=== PATIENT | female | born 1960 | race Caucasian/White ===

== ENCOUNTER 2020-05-30 14:43 | Outpatient (REF) | payer MEDICAID, SELFPAY ==
--- NOTE | 2020-05-30 | XR_ITS ---
EXAMINATION: XR KNEE, RIGHT CLINICAL INFORMATION: Pain and swelling COMPARISON: None TECHNIQUE: Four views of the right knee. FINDINGS: Bone alignment is normal. No fracture or dislocation is seen. The joint spaces are normal appearing. There is a small soft tissue calcification or ossification adjacent to the superior medial patella seen on 3 of 4 views. This may be related to old trauma. Soft tissues are otherwise unremarkable. There is no joint effusion. XR/XR knee RT 4V IMPRESSION: Question soft tissue calcification adjacent to the superior medial patella probably related to old trauma. Otherwise unremarkable exam.
--- NOTE | 2020-05-30 | US_ITS ---
EXAMINATION: US EXTREMITY NONVASCULAR, RIGHT CLINICAL INFORMATION: Right knee pain and effusion. COMPARISON: None TECHNIQUE: Limited imaging through the right knee popliteal fossa was performed. FINDINGS: Limited imaging through the right knee popliteal fossa reveals no evidence of Mckay's cyst or joint effusion. No soft tissue mass or aneurysm. US/US extremity nonvascular IMPRESSION: Normal limited ultrasound evaluation of right popliteal fossa with no visualization of mass, cyst or joint effusion. No evidence of aneurysm either.
== END 2020-05-30 14:44 | disposition home or self-care (01) ==
LOC: HO.US 14:43
PROVIDERS: PCP Internal Medicine Geriatric Medicine; Visit Provider Nurse Practitioner Family
DX: M25.561 Pain in right knee (principal); M25.461 Effusion, right knee
CPT/HCPCS: 73564; 76882

== ENCOUNTER 2020-06-20 15:56 | Outpatient (REF) | payer MEDICAID, SELFPAY ==
--- NOTE | ~2020-06-20 | US_ITS ---
EXAMINATION: US VENOUS ULTRASOUND WITH DOPPLER LOWER EXTREMITY, RIGHT CLINICAL INFORMATION: Right knee pain COMPARISON: None TECHNIQUE: Ultrasound of the deep veins is performed from the hip to the calf with compression sonography and color and pulse Doppler assessment. Spectral analysis with color-flow imaging is performed. FINDINGS: There is normal venous compression and respiratory variation and augmented flow. The visualized common femoral vein, superficial femoral vein, profunda femoral vein, popliteal vein, and the trifurcation region shows no evidence of deep venous thrombosis. There is no significant popliteal fossa cyst. If the patient's symptoms persist, followup ultrasound in 5 days 7 days might be of value to exclude proximal propagation from a non-visualized calf vein. US/US venous duplex LE RT IMPRESSION: No DVT demonstrated in the right lower extremity.
== END 2020-06-20 15:57 | disposition home or self-care (01) ==
LOC: HO.US 15:56
PROVIDERS: PCP Internal Medicine Geriatric Medicine; Visit Provider Nurse Practitioner Family
DX: M25.461 Effusion, right knee (principal); M25.561 Pain in right knee
CPT/HCPCS: 93971

== ENCOUNTER 2020-07-25 18:38 | Outpatient (REF) | payer MEDICAID, SELFPAY ==
--- NOTE | ~2020-07-25 | MR_ITS ---
EXAMINATION: MR KNEE WITHOUT CONTRAST, RIGHT CLINICAL INFORMATION: Right knee pain COMPARISON: Radiograph dated 05/30/2020 TECHNIQUE: MRI of the knee without contrast was performed using routine sequences on a high-field scanner. FINDINGS: MENISCI: Medial Meniscus: There is mild fraying of the free edge of the posterior horn. Medial meniscus otherwise intact. Lateral Meniscus: There is mild fraying/small radial tear of the free edge of the body. LIGAMENTS: Cruciate: Intact Collateral: Intact EXTENSOR MECHANISM: Intact ARTICULAR CARTILAGE/BONE: Patellofemoral Compartment: There is susceptibility artifact obscuring the medial patella. No macroscopic cartilage defect. Medial Compartment: No macroscopic cartilage defect. Lateral Compartment: No macroscopic cartilage defect. JOINT FLUID AND BURSAE: Trace joint effusion. MR/MR knee RT wo con IMPRESSION: Mild fraying of the free end to the posterior horn of the MEDIAL meniscus. Small radial tear of the body of the LATERAL meniscus.
== END 2020-07-25 18:39 | disposition home or self-care (01) ==
LOC: HO.MRI 18:38
PROVIDERS: Visit Provider Internal Medicine Geriatric Medicine
DX: M25.561 Pain in right knee (principal)
CPT/HCPCS: 73721

== ENCOUNTER → 2020-08-21 11:10 | Outpatient (BNVA) | payer MEDICAID, SELFPAY | PROVIDERS: PCP Internal Medicine Geriatric Medicine; Visit Provider Physician Assistant | DX: M17.11 Unilateral primary osteoarthritis, right knee (principal); S83.289A Other tear of lateral meniscus, current injury, unspecified knee, initial encounter | CPT/HCPCS: 20610; 99202; J1040 ==

== ENCOUNTER 2020-09-09 14:29 | Outpatient (RCR) | payer MEDICAID, SELFPAY ==
--- NOTE | 2020-09-09 16:17 | MHC.PT.EP ---
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 TODAY SHE PRESENTS WITH POSTERIOR KNEE PAIN AND SWELLING. UPON EXAM, IMPAIRMENTS INCLUDE DECREASED HIP AND KNEE ROM, DECREASED STRENGTH OF HIP AND KNEE MUSCULATURE, ALTERED GAIT PATTERN, IMPAIRED BALANCE, INCREASED PAIN. FUNCTIONAL LIMITATIONS INCLUDE DECREASED TOLERANCE TO WALKING, STAIR MANAGEMENT, SIT TO STAND XFERS. SHE REPORTS DIFFICULTY WITH HOMEMAKING AND WORK TASKS, DECREASED ABILITY TO PERFORM COMMUNITY AND RECREATIONAL ACTIVITIES, DISRUPTED SLEEP. Frequency and Duration: The patient will be seen 2 X WEEK FOR 5 WEEKS Short Term Goals: INITIATE HAMSTRING AND CALF STRETCHING AND Pt TO DEMONSTRATE INDEPENDENCE WITH INITIAL HEP IN 3 VISITS. Milk Receiver Goals: IN 5 WEEKS TO PERFORM STAIR MANAGEMENT, 2 FLIGHT MINIMUM WITH PAIN NO GREATER THAN 2/10 TO PERFORM ALL WORK TASKS WITHOUT RESTRICTION AND PAIN NO GREATER THAN 2/10 TO DEMONSTRATE INDEPENDENCE WITH HEP TO AMBULATE AD SOHAIL ON EVEN AND UNEVEN SURFACES WITHOUT RESTRICTION FULL AND EQUAL LE STRENGTH TAVO FULL AND EQUAL ROM TAVO Treatment Plan: Modalities to reduce pain, spasms and effusion. Manual therapy to restore motion and function. Therapeutic exercise to improve strength and flexibility. Neuromuscular re-education for posture and balance. Therapeutic activities to return to functional activities of daily living. Electronically signed by: ALPA GALAVIZ PT, DPT Please sign and return to therapist. Thank you for your referral.
== END 2020-10-04 15:30 | disposition other institution (70) ==
LOC: HO.PT 14:29
PROVIDERS: PCP Internal Medicine Geriatric Medicine; Visit Provider Physician Assistant
DX: M17.11 Unilateral primary osteoarthritis, right knee (principal)
CPT/HCPCS: 97110; 97112; 97161

== ENCOUNTER 2020-11-01 15:20 | Outpatient (REF) | payer MEDICAID, SELFPAY ==
--- NOTE | ~2020-11-01 | XR_ITS ---
EXAMINATION: XR HAND BILATERAL CLINICAL INFORMATION: Pain in both hands. COMPARISON: None TECHNIQUE: Three views of each hand. FINDINGS: LEFT HAND: Multiple views of the left hand reveal no visible acute fracture or dislocation. Minimal loss of PIP and DIP joint space is seen without bony erosive changes. There is minimal periarticular spurring DIP joints of all digits 2nd through 4th. The soft tissues are normal. RIGHT HAND: There is mild loss of PIP and DIP joints of all spaces with moderate periarticular spurring DIP joint 5th digit. No visible acute fracture or dislocation. The MCP joint is normal. XR/XR hand RT min 3V IMPRESSION: Mild degenerative changes PIP and DIP joints both digits. Moderate periarticular spurring DIP joint 5th digit right hand. No visible acute fracture or dislocation seen.
--- NOTE | ~2020-11-01 | XR_ITS ---
EXAMINATION: XR HAND BILATERAL CLINICAL INFORMATION: Pain in both hands. COMPARISON: None TECHNIQUE: Three views of each hand. FINDINGS: LEFT HAND: Multiple views of the left hand reveal no visible acute fracture or dislocation. Minimal loss of PIP and DIP joint space is seen without bony erosive changes. There is minimal periarticular spurring DIP joints of all digits 2nd through 4th. The soft tissues are normal. RIGHT HAND: There is mild loss of PIP and DIP joints of all spaces with moderate periarticular spurring DIP joint 5th digit. No visible acute fracture or dislocation. The MCP joint is normal. XR/XR hand LT min 3V IMPRESSION: Mild degenerative changes PIP and DIP joints both digits. Moderate periarticular spurring DIP joint 5th digit right hand. No visible acute fracture or dislocation seen.
== END 2020-11-01 15:21 | disposition home or self-care (01) ==
LOC: HO.XRAY 15:20
PROVIDERS: PCP Internal Medicine Geriatric Medicine; Visit Provider Internal Medicine Geriatric Medicine
DX: M79.641 Pain in right hand (principal); M79.642 Pain in left hand
CPT/HCPCS: 73130

== ENCOUNTER 2021-05-23 15:24 | Outpatient (REF) | payer MEDICAID, SELFPAY ==
--- NOTE | ~2021-05-23 | MM_ITS ---
EXAMINATION: MM SCREENING DIGITAL BREAST TOMOSYNTHESIS, BILATERAL CLINICAL INFORMATION: Screening. Asymptomatic. The lifetime risk of breast cancer based on the Tyrer-Cuzick Model is 8%. COMPARISON: Mammography: 03/28/2018, 03/26/2017, outside exam 03/04/2015 ([facility]). TECHNIQUE: Digital breast tomosynthesis is performed in both the craniocaudal and mediolateral oblique views along with computer-aided detection (CAD). Synthesized 2D images are generated from the tomosynthesis. FINDINGS: There are scattered areas of fibroglandular density (ACR BI-RADS breast composition Category b). There are no significant masses, abnormal calcifications, or other abnormalities. Parenchymal pattern is similar to prior studies. There is no developing density or architectural abnormality. The axilla and skin contours are unremarkable. No significant changes. MM/MM tomosynthesis screening BI IMPRESSION: No mammographic evidence of malignancy. ASSESSMENT: BI-RADS 1: Negative RECOMMENDATION: Routine annual mammography screening. This patient's information was entered into a reminder system with a target due date for their next mammogram.
== END 2021-05-23 15:25 | disposition home or self-care (01) ==
LOC: HO.MAMMO 15:24
PROVIDERS: PCP Internal Medicine Geriatric Medicine; Visit Provider Internal Medicine Geriatric Medicine
DX: Z12.31 Encounter for screening mammogram for malignant neoplasm of breast (principal)
CPT/HCPCS: 77063; 77067

== ENCOUNTER 2022-01-07 10:52 | Outpatient (REF) | payer MEDICAID, SELFPAY ==
--- NOTE | ~2022-01-07 | XR_ITS ---
EXAMINATION: XR HAND, RIGHT CLINICAL INFORMATION: Right middle trigger finger. COMPARISON: Radiographs dated 11/01/2020. TECHNIQUE: PA, lateral, and oblique views of the right hand. FINDINGS: Bony mineralization is normal. There is a mild ulnar positive variance. The proximal and distal carpal rows are intact. There is mild osteoarthritic change of the interphalangeal joint of the thumb. There is mild right second through fourth distal interphalangeal joint space narrowing. There is marked osteoarthritic change of the fifth distal interphalangeal joint. No fracture or dislocation is seen. There is no abnormal bone erosion. No focal soft tissue swelling, gas or foreign body is seen. XR/XR hand RT min 3V IMPRESSION: 1. No fracture or dislocation is seen. 2. There is mild osteoarthritic change of the interphalangeal joint of the right thumb, and there is marked osteoarthritic change of the right fifth distal interphalangeal joint. There is lesser osteoarthritic change of the second through fourth distal interphalangeal joint spaces. This appearance is similar to 11/01/2020.
== END 2022-01-07 10:53 | disposition home or self-care (01) ==
LOC: HO.XRAY 10:52
PROVIDERS: PCP Internal Medicine Geriatric Medicine; Visit Provider Internal Medicine Geriatric Medicine
DX: M65.331 Trigger finger, right middle finger (principal)
CPT/HCPCS: 73130

== ENCOUNTER → 2022-02-25 11:28 | Outpatient (BNVA) | payer MEDICAID, SELFPAY | PROVIDERS: PCP Internal Medicine Geriatric Medicine; Visit Provider Orthopaedic Surgery | DX: M65.331 Trigger finger, right middle finger (principal) | CPT/HCPCS: 99202 ==

== ENCOUNTER 2022-03-23 08:31 | Day surgery (SDC) | payer MEDICAID, SELFPAY ==
[2022-03-23 09:04] VITALS: BP 134/84; PULSE 66; RESP 18; TEMP 36.4; O2SAT 98; BMI 27.1
[2022-03-23 10:22] VITALS: BP 132/87; PULSE 63; RESP 16; TEMP 36.2; O2SAT 95
--- NOTE | 2022-03-23 10:36 | MHC.SHP ---
Pre-Procedural Eval Section A Date of Service: 03/23/22 The patient is an INPATIENT: No Changes since office visit: No Cold of Flu in the past 2 weeks, No New Medical Problems, No Changes in Medication and No Patient answered all questions The History & Physical has been completed within 30 days and I have reviewed it.: Yes Section B Chief Complaint: Trigger finger, right middle finger Allergies: Allergies Allergy/AdvReac Type Severity Reaction Status Date / Time No Known Allergies Allergy Verified 02/25/22 11:58 Plan I have reviewed the history and physical and performed a pertinent physical examination on my patient. No changes have occurred unless specified.
--- NOTE | 2022-03-23 10:36 | W.PM.OPN ---
Operative Note Operative Note Date of Service: 03/23/22 Narrative: Operative Note Preop diagnosis: 1. Right middle finger Trigger finger Postop diagnosis: 1. right middle finger Trigger finger Procedure: 1. right middle finger A1 juanita release Surgeon: Arminda Lancaster MD Anesthesia: local block using 1% lidocaine with epinephrine Findings: No locking or catching after A1 juanita release EBL: Less than 5 mL Tourniquet time: None Specimens: None Complications: None Disposition: Brought to recovery room in stable condition Plan: Follow-up for 10-14 days for wound check and suture removal Indications: The patient is 61 years old, with a right middle finger trigger finger that has been unresponsive to nonoperative management. The risks and benefits of operative treatment including but not limited to risk of damage to blood vessels, nerves, tendons, infection, persistent pain, persistent symptoms, recurrence or possible need for additional surgery were discussed with the patient and the patient wishes to proceed with surgery. Procedure: Once consent was obtained a local block was performed in the preop area using a combination of 1% lidocaine with epinephrine. The patient was then brought back to the operating suite and placed on the operative table in supine position. A tourniquet was applied to the proximal aspect of the right upper extremity and the limb was prepped and draped in a standard surgical fashion. Once assured that we had a good block, a 1.5 cm oblique incision was made centered over the A1 juanita of the right middle finger . The incision was made through the skin to the subcutaneous tissues using a #15 blade. Careful dissection was made down to the level of the A1 juanita using tenotomy scissors, with care being taken to protect the nearby neurovascular structures. A longitudinal incision was made in the A1 juanita 1st using a #15 blade, then using tenotomy scissors under direct visualization. The A1 juanita was noted to be thickened. Following our A1 juanita release, we no longer saw any locking or catching of the digit with flexion and extension. Once satisfied with our A1 juanita release the wound was copiously irrigated with normal saline and hemostasis was obtained with a brief period of local pressure. The skin edges were reapproximated with some 5.0 nylon suture material and a sterile dressing was applied. The patient appears to have tolerated the procedure well and with no complications. All digits were well vascularized at the conclusion of the case.
== END 2022-03-23 10:38 | disposition home or self-care (01) ==
PROVIDERS: PCP Internal Medicine Geriatric Medicine; Visit Provider Orthopaedic Surgery
PROC: (CPT 26055; principal; 2022-03-23 10:10)
DX: M65.331 Trigger finger, right middle finger (principal); R20.0 Anesthesia of skin; R20.2 Paresthesia of skin; E03.9 Hypothyroidism, unspecified; Z79.899 Other long term (current) drug therapy
CPT/HCPCS: 26055; J0171

== ENCOUNTER 2022-05-25 15:37 | Outpatient (REF) | payer MEDICAID, SELFPAY ==
--- NOTE | ~2022-05-25 | MM_ITS ---
EXAMINATION: MM SCREENING DIGITAL BREAST TOMOSYNTHESIS, BILATERAL CLINICAL INFORMATION: Screening. Asymptomatic. The lifetime risk of breast cancer based on the Tyrer-Cuzick Model is 7.2%. COMPARISON: Mammography: May 23, 2021 and studies dating back to March 04, 2015 TECHNIQUE: Digital breast tomosynthesis is performed in both the craniocaudal and mediolateral oblique views along with computer-aided detection (CAD). Synthesized 2D images are generated from the tomosynthesis. FINDINGS: There are scattered areas of fibroglandular density (ACR BI-RADS breast composition Category b). There are no significant masses, abnormal calcifications, or other abnormalities. MM/MM tomosynthesis screening BI IMPRESSION: No significant changes from prior exam. ASSESSMENT: BI-RADS 2: Benign RECOMMENDATION: Routine annual mammography screening. This patient's information was entered into a reminder system with a target due date for their next mammogram.
== END 2022-05-25 15:38 | disposition home or self-care (01) ==
LOC: HO.MAMMO 15:37
PROVIDERS: PCP Internal Medicine Geriatric Medicine; Visit Provider Internal Medicine Geriatric Medicine
DX: Z12.31 Encounter for screening mammogram for malignant neoplasm of breast (principal)
CPT/HCPCS: 77063; 77067

== ENCOUNTER 2022-11-30 16:29 | Outpatient (REF) | payer MEDICAID, SELFPAY ==
[2022-11-30 18:50] LABS: Free T4 (Free Thyroxine) 0.72 ng/dL (0.71-1.85); Thyroid Stimulating Hormone 6.88 uIU/mL (0.32-4.0)
[2022-12-01 12:20] LABS: BV Int Neg Control Negative (Negative); BV Int Pos Control Positive (Positive)
== END 2022-11-30 16:30 | disposition home or self-care (01) ==
LOC: HO.LAB 16:29
PROVIDERS: Student in an Organized Health Care Education/Training Program; PCP Internal Medicine Geriatric Medicine; Visit Provider Internal Medicine Geriatric Medicine
DX: N93.9 Abnormal uterine and vaginal bleeding, unspecified (principal); E03.9 Hypothyroidism, unspecified
CPT/HCPCS: 36415; 84439; 84443; 87480; 87510; 87660

== ENCOUNTER 2022-12-09 15:57 | Outpatient (REF) | payer MEDICAID, SELFPAY ==
--- NOTE | ~2022-12-09 | US_ITS ---
EXAMINATION: US PELVIS CLINICAL INFORMATION: Bleeding. COMPARISON: None available. TECHNIQUE: Ultrasound of the pelvis is performed using both transabdominal and transvaginal transducers along with Doppler. Transvaginal imaging is performed due to inadequate visualization transabdominally. FINDINGS: Exam is limited. The uterus is anteverted and measures 7.8 x 3.6 x 5.1 cm in dimension. No focal uterine lesion is seen. Endometrial thickness is normal measuring 4 mm. The ovaries are not seen. There is no fluid in the pelvis. US/US pelvic and transvaginal IMPRESSION: Limited exam. Normal thickness endometrium. Ovaries not seen.
== END 2022-12-09 15:58 | disposition home or self-care (01) ==
LOC: HO.US 15:57
PROVIDERS: PCP Internal Medicine Geriatric Medicine; Visit Provider Student in an Organized Health Care Education/Training Program
DX: N93.9 Abnormal uterine and vaginal bleeding, unspecified (principal)
CPT/HCPCS: 76830; 76856

== ENCOUNTER 2022-12-25 15:19 | Outpatient (REF) | payer MEDICAID, SELFPAY ==
[2022-12-25 16:41] LABS: MANUAL DIFF FLAG NO
[2022-12-25 16:48] LABS: Basophils Absolute Auto 0.1 X10*3/uL (0.0-0.2); Basophils Percent Auto 1.2 % (0-2); Eosinophils Absolute Auto 0.1 X10*3/uL (0.0-0.4); Hematocrit 43.4 % (37.0-47.0); Imm Gran Abs Auto 0.03 X10*3/uL (0.00-0.03); Imm Gran Pct Auto 0.5 % (0.0-0.4); Lymphocytes Absolute Auto 2.1 X10*3/uL (1.2-4.9); Lymphocytes Percent Auto 31.1 % (20-40); Mean Corpuscular HGB Conc 34.6 g/dl (31.0-35.0); Mean Corpuscular Hemoglobin 32.3 pg (27.0-33.0); Mean Corpuscular Volume 93.5 fL (80.0-98.0); Mean Platelet Volume 10.6 fL (9.4-12.3); Monocytes Absolute Auto 0.7 X10*3/uL (0.1-1.2); Monocytes Percent Auto 9.8 % (2-11); Neutrophils Absolute Auto 3.7 x10*3/uL (2.0-8.3); Neutrophils Percent Auto 55.4 % (45-73); Platelet Count 288 X10*3/uL (160-400); Red Blood Count 4.64 X10*6/uL (4.20-5.50); Red Cell Distribution Width 12.3 % (11.0-16.0); White Blood Count 6.7 X10*3/uL (4.8-10.8)
[2022-12-25 17:23] LABS: Alanine Aminotransferase 35 U/L (0-31); Albumin Level 4.2 g/dL (3.5-5.0); Alkaline Phosphatase 73 U/L (39-117); Anion Gap 12 (12-20); Aspartate Amino Transferase 25 U/L (5-31); Bilirubin Total 0.6 mg/dL (0.0-1.0); Blood Urea Nitrogen 11 mg/dL (9-16); Calcium 9.7 mg/dL (8.4-10.2); Carbon Dioxide 28 mmol/L (22-29); Chloride 105 mmol/L (96-108); Estimated Glomerular Filt Rate > 60; Glucose Random 85 mg/dL (60-115); Potassium 3.8 mmol/L (3.3-5.1); Sodium 141 mmol/L (135-145); Total Protein 8.5 g/dL (6.5-8.0)
[2022-12-25 17:39] LABS: TSH reflex Free T4 0.32 uIU/mL (0.32-4.0)
== END 2022-12-25 15:20 | disposition home or self-care (01) ==
LOC: HO.HHCL 15:19
PROVIDERS: Visit Provider Emergency Medicine
DX: R42 Dizziness and giddiness (principal)
CPT/HCPCS: 36415; 80053; 84443; 85025

== ENCOUNTER 2023-01-14 18:36 | Outpatient (REF) | payer MEDICAID, SELFPAY | END 2023-01-14 18:37 | disposition home or self-care (01) | LOC: HO.HHCLNP 18:36 | PROVIDERS: Visit Provider Family Medicine | DX: R30.9 Painful micturition, unspecified (principal) | CPT/HCPCS: 87086; 87088; 87186 ==

== ENCOUNTER 2023-03-30 15:01 | Outpatient (REF) | payer MEDICAID, SELFPAY ==
[2023-04-03 13:43] LABS: HPV mRNA E6/E7 rflx Not Detected (Not Detected)
== END 2023-03-30 15:02 | disposition home or self-care (01) ==
LOC: HO.LNP 15:01
PROVIDERS: PCP Internal Medicine Geriatric Medicine; Visit Provider Obstetrics & Gynecology
DX: Z12.4 Encounter for screening for malignant neoplasm of cervix (principal); Z11.51 Encounter for screening for human papillomavirus (HPV); N95.0 Postmenopausal bleeding
CPT/HCPCS: 87624; 88142; 99202

== ENCOUNTER 2023-03-30 15:01 | Outpatient (AMB) | payer MEDICAID, SELFPAY ==
[2023-03-30 15:24] VITALS: BP 116/80; BMI 28.0
--- NOTE | 2023-03-30 15:24 | MHC.OFFVIS ---
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 [employer]/ right handed Female Reproductive History Menstrual Age of Menarche: 14 control method: permanent sterilization Total pregnancies: 7 Full term: 4 Number of Living Children: 4 Ab spontaneous: 3 Date of last pap smear: 03/21/19 (negative) History of abnormal pap smear: No Review of Systems Const All systems reviewed & are unremarkable except as noted in HPI and below Physical Exam Vital Signs: Last Vital Signs BP 116/80 03/30/23 15:24 BMI result Body Mass Index 28.0 General: Yes no CVA tenderness External Female Exam: normal external appearance and normal appearance of the urethra Speculum Exam - Vagina: normal appearance of the vagina, normal palpation, no lesions and no masses Speculum Exam - Cervix: normal appearance of the cervix, normal palpation, no lesions, no masses and nontender Bimanual exam- vagina & uterus: normal bimanual exam, normal palpation, uterine size normal, normal palpation, uterine shape normal, No Cervical tenderness present and non-tender Bimanual Exam- Adnexa, other: normal adnexae Back/Spine/Pelvis Back: no CVA tenderness Assessment & Plan Assessment & Plan (1) Postmenopausal bleeding: Code(s): N95.0 - Postmenopausal bleeding Plan: Discussed with the patient the differential diagnosis of post menopausal bleeding with normal pelvic exam including but not limited to, endometrial hyperplasia, cancer, polyps and other causes; co testing done Discussed with the patient the results of the pelvic ultrasound showing an endometrial stripe thickness of 4 mm. Explained to the patient with an endometrial stripe of 4 mm &/or less, there is a high negative predictive value in detecting endometrial pathology including endometrial hyperplasia, polyps or malignancy. Therefore, there is no indication for endometrial sampling. Discussed with the patient the sensitivity, specificity, and positive and the negative predictive value of using ultrasound in detecting endometrial pathology. The patient was instructed to call if bleeding recurs, will proceed with endometrial sampling out endometrial pathology. All questions were answered and the patient verbalized understanding and agreed with the plan. Coding Level of Care Code New Pt Level 3 (57972) Diagnoses Postmenopausal bleeding N95.0
== END 2023-03-30 16:17 | disposition home or self-care (01) ==
LOC: HO.HWS 15:01
PROVIDERS: PCP Internal Medicine Geriatric Medicine; Visit Provider Obstetrics & Gynecology
DX: N95.0 Postmenopausal bleeding (principal)
CPT/HCPCS: 99203

== ENCOUNTER 2023-08-06 18:07 | Outpatient (REF) | payer MEDICAID, SELFPAY ==
[2023-08-06 19:02] LABS: Appearance Urine Clear; Color Urine Yellow; Glucose Urine UA Negative (Negative); Leukocyte Esterase Urine Moderate (2+) (Negative); Nitrite Urine Negative (Negative); UMIC TRIGGER UACC YES; Urine Blood Trace (Negative); Urine Ketones Trace mg/dL (Negative); Urine Protein Trace mg/dL (Neg-Trace)
[2023-08-06 19:06] LABS: Bacteria Urine Trace (None Seen); Hyaline Casts Urine 0-2 /LPF (0-2); RBC Urine 0-2 /HPF (0-2); UACC Culture Trigger YES
== END 2023-08-06 18:08 | disposition home or self-care (01) ==
LOC: HO.HHCLNP 18:07
PROVIDERS: Visit Provider Internal Medicine Geriatric Medicine
DX: R32 Unspecified urinary incontinence (principal)
CPT/HCPCS: 81001; 87086

== ENCOUNTER 2024-01-26 10:46 | Outpatient (REF) | payer MEDICAID, SELFPAY ==
[2024-01-26 11:26] LABS: MANUAL DIFF FLAG NO
[2024-01-26 11:36] LABS: Basophils Absolute Auto 0.1 X10*3/uL (0.0-0.2); Basophils Percent Auto 0.9 % (0-2); Eosinophils Absolute Auto 0.1 X10*3/uL (0.0-0.4); Eosinophils Percent Auto 2.6 % (0-4); Hematocrit 40.7 % (37.0-47.0); Hemoglobin 13.9 g/dl (12.0-16.0); Imm Gran Abs Auto 0.03 X10*3/uL (0.00-0.03); Imm Gran Pct Auto 0.6 % (0.0-0.4); Lymphocytes Absolute Auto 1.7 X10*3/uL (1.2-4.9); Lymphocytes Percent Auto 31.5 % (20-40); Mean Corpuscular HGB Conc 34.2 g/dl (31.0-35.0); Mean Corpuscular Hemoglobin 31.9 pg (27.0-33.0); Mean Corpuscular Volume 93.3 fL (80.0-98.0); Mean Platelet Volume 10.4 fL (9.4-12.3); Monocytes Absolute Auto 0.6 X10*3/uL (0.1-1.2); Monocytes Percent Auto 10.8 % (2-11); Neutrophils Absolute Auto 2.9 x10*3/uL (2.0-8.3); Neutrophils Percent Auto 53.6 % (45-73); Platelet Count 232 X10*3/uL (160-400); Red Blood Count 4.36 X10*6/uL (4.20-5.50); White Blood Count 5.4 X10*3/uL (4.8-10.8)
[2024-01-26 12:26] LABS: Anion Gap 12 (12-20); Blood Urea Nitrogen 11 mg/dL (9-16); Carbon Dioxide 24 mmol/L (22-29); Chloride 108 mmol/L (96-108); Estimated Glomerular Filt Rate > 60; Glucose Random 101 mg/dL (60-115); Potassium 3.9 mmol/L (3.3-5.1); Sodium 140 mmol/L (135-145)
[2024-01-26 12:38] LABS: TSH reflex Free T4 0.69 uIU/mL (0.32-4.0)
== END 2024-01-26 10:47 | disposition home or self-care (01) ==
LOC: HO.HHCL 10:46
PROVIDERS: Visit Provider Internal Medicine Geriatric Medicine
DX: E03.9 Hypothyroidism, unspecified (principal); M54.41 Lumbago with sciatica, right side; G89.29 Other chronic pain
CPT/HCPCS: 36415; 80048; 84443; 85025

== ENCOUNTER 2024-06-23 10:22 | Outpatient (REF) | END 2024-06-23 10:23 | disposition home or self-care (01) | LOC: HO.HHCX 10:22 | DX: M54.50 Low back pain, unspecified (principal); G89.29 Other chronic pain ==

== ENCOUNTER → 2024-06-23 10:23 | Outpatient (BNV) | payer MEDICAID, SELFPAY | PROVIDERS: Visit Provider Radiology Diagnostic Radiology | DX: M54.50 Low back pain, unspecified (principal) | CPT/HCPCS: 72100 ==

== ENCOUNTER 2024-09-07 10:47 | Outpatient (REF) | payer MEDICAID, SELFPAY ==
--- NOTE | ~2024-09-07 | XR_ITS ---
CLINICAL HISTORY: pain 2 view, pelvis and left hip Comparison: None Findings: No acute fracture or dislocation. No significant arthritic change. The soft tissues are unremarkable. IMPRESSION: No acute findings. This document has been electronically signed by: Braden Regan MD on 09/08/2024 08:54:58
--- NOTE | ~2024-09-07 | XR_ITS ---
EXAMINATION: XR ANKLE, RIGHT CLINICAL INFORMATION: pain COMPARISON: None available. TECHNIQUE: AP, lateral, and mortise views of the right ankle. FINDINGS: No acute cortical disruption or malalignment. No lytic or blastic lesions. No subcutaneous emphysema. No metallic or radiopaque foreign body. No gross joint effusion. XR/XR ankle RT min 3V IMPRESSION: No acute fracture or dislocation. Negative x-ray. Electronically signed by: Marquise Anders MD 09/07/2024 01:54 PM EDT
--- NOTE | ~2024-09-07 | XR_ITS ---
EXAMINATION: XR HIP, RIGHT CLINICAL INFORMATION: pain COMPARISON: None available. TECHNIQUE: Two views of the right hip. FINDINGS: No acute cortical disruption or malalignment. No lytic or blastic lesions. No asymmetric joint space narrowing. No sclerosis or subchondral cyst formation along the articular surfaces. XR/XR hip RT min 2V IMPRESSION: Normal right hip x-ray Electronically signed by: Marquise Anders MD 09/07/2024 01:06 PM EDT
--- NOTE | ~2024-09-07 | XR_ITS ---
EXAMINATION: XR ANKLE, LEFT CLINICAL INFORMATION: pain COMPARISON: None available. TECHNIQUE: AP, lateral, and mortise views of the left ankle. FINDINGS: No consolidation pleural effusion or pneumothorax. No lytic or blastic lesions. Small exostosis at the Achilles tendon insertion. No gross joint effusion. XR/XR ankle LT min 3V IMPRESSION: Probable enthesopathy, Achilles tendon insertion. Electronically signed by: Marquise Anders MD 09/07/2024 01:49 PM EDT
--- OUTSIDE RECORDS SUMMARY | 2024-09-07 12:39 | XMS_ITS | Encounter Summary ---
Author Organization [facility] Address [address] [place] [address] 7 [place] [address] Care Team Providers Care Supervisor Filling And Packing Name Role Phone Name, Olayinka ROSARIO Primary Care Provider [phone] Encounter Details Date Type Department Care Team (Latest Contact Info) Description 03/16/2022 Abstract [facility] CONVERSIONS Dental, Provider, DDS Social History Tobacco Use Types Packs/Day Years Used Date Smoking Tobacco: Never Assessed Comments Unknown Sex and Gender Information Value Date Recorded Sex Assigned at Female 03/16/2022 10:24 AM EDT Legal Sex Female 10:24 AM EDT Gender Identity Female 03/16/2022 10:24 AM EDT Sexual Orientation Straight 03/16/2022 10 :24 AM EDT documented as of this encounter Plan of Treatment Upcoming Encounters Date Type Department Care Team (Late st Contact Info) Description 02/22/2025 10:00 AM EDT Office Visit [facility] ADULT DENTAL [address] [place] [address] Blanche Wilkerson documented as of this encounter Visit Diagnoses Not on filedocumented in this encounter Care Teams Supervisor Filling And Packing Relationship Specialty Start Date End Date Name, MD Olayinka [address] [place] [address] PCP - General Family Medicine 08/06/15 documented as of this encounter
--- OUTSIDE RECORDS SUMMARY | 2024-09-07 12:39 | XMS_ITS | Encounter Summary ---
Author Organization [facility] Address [address] [place] [address] 7 [place] [address] Care Team Providers Care Commercial Finance Manager Name Role Phone Name, Olayinka ROSARIO Primary Care Provider [phone] Encounter Details Date Type Department Care Team (Latest Contact Info) Description 08/16/2020 Abstract [facility] CONVERSIONS Dental, Provider, DDS Social History [...] Description 02/22/2025 10:00 AM EDT Office Visit [facility] ADULT DENTAL [address] [place] [address] Blanche Wilkerson documented as of this encounter Visit Diagnoses Not on filedocumented in this encounter Care Teams Commercial Finance Manager Relationship Specialty Start Date End Date Name, MD Olayinka [address] [place] [address] PCP - General Family Medicine 08/06/15 documented as of this encounter
--- OUTSIDE RECORDS SUMMARY | 2024-09-07 12:39 | XMS_ITS | Encounter Summary ---
Author Organization [facility] Address [address] [place] [address] Care Team Providers Care Group Therapist Name Role Phone Name, Olayinka ROSARIO Primary Care Provider [phone] Encounter Details Date Type Department Care Team (Late st Contact Info) Description 05/07/2022 Abstract [facility] ADULT DENTAL [address] [place] [address] Faisal Feliz DDS [address] [place] [address] Social History Tobacco Use Types Packs/Day Years [...] 10:00 AM EDT Office Visit [facility] ADULT DENTAL [address] [place] [address] Blanche Wilkerson documented as of this encounter Visit Diagnoses Not on filedocumented in this encounter Care Teams Group Therapist Relationship Specialty Start Date End Date Name, MD Olayinka [address] [place] [address] PCP - General Family Medicine 08/06/15 documented as of this encounter
--- OUTSIDE RECORDS SUMMARY | 2024-09-07 12:39 | XMS_ITS | Encounter Summary ---
Author Organization [facility] Address [address] [place] [address] [address] [place] [address] Care Team Providers Care Director Of Procurement Name Role Phone Name, Olayinka ROSARIO Primary Care Provider [phone] Encounter Details Date Type Department Care Team (Latest Contact Info) Description 01/25/2019 Abstract [facility] CONVERSIONS Dental, Provider, DDS Social History Tobacco [...] Description 02/22/2025 10:00 AM EDT Office Visit [facility] ADULT DENTAL [address] [place] [address] Blanche Wilkerson documented as of this encounter Visit Diagnoses Not on filedocumented in this encounter Care Teams Director Of Procurement Relationship Specialty Start Date End Date Name, MD Olayinka [address] [place] [address] PCP - General Family Medicine 08/06/15 documented as of this encounter
--- OUTSIDE RECORDS SUMMARY | 2024-09-07 12:39 | XMS_ITS | Clinical Summary ---
[facility] Organization [facility] Address [address] [place] [address] Care Team Providers Care Dental Assisting Instructor Name Role Phone Unavailable Primary Care Provider Unavailabl e Surgical History Surgery Date Site/Laterality Comments SECTION PROCEDURE: HISTORICAL TUBAL LIGATION PROCEDURE: HISTORICAL TUBAL LIGATION OTHER SURGICAL HISTORY PROCEDURE: ---- OTHER ----; COMMENT: endometrial biopsy Medical History Medical History Date Comments Hyperlipidemia DX:Hyperlipidemi a Family History Medical History Relation Name Comments Blindness Neg Hx Breast cancer Neg Hx Cataracts Neg Hx Colon cancer Neg Hx Glaucoma Neg Hx Macular degeneration Neg Hx Ovarian cancer Neg Hx Strabismus Neg Hx Relation Name Status Comments Daughter 1 Alive Daughter 2 Alive Daughter 3 Alive Daughter 4 Alive Father COPD Mother Alive CAD Sister 1 Alive Sister 2 Alive Sister 3 Alive Sister 4 Alive Social History Tobacco Use Types Packs/Day Years Used Date Smoking Tobacco: Never Smokeless Tobacco: Never Alcohol Use Standard Drinks/Week Comments No 0 (1 standard drink = 0.6 oz pur e alcohol) Comments Unknown Sex and Gender Information Value Date Recorded Sex Assigned at Not on file Legal Sex Female 8:29 AM EST Gender Identity Not on file Sexual Orientation Not on file Obstetrics History Plan of Treatment Health Maintenance Due Date Last Done Comments Breast Cancer Screening 1962 Cervical Cancer Screening: Pap Smear 10/20/1983 Pneumococcal Vaccine: 50+ Years (1 of 1 - PCV) 2012 Zoster Vaccines (1 of 2) 2012 DTaP,Tdap,and Td Vaccines (2 - Td or Tdap) 02/13/2020 02/12/2010 Colorectal Cancer Screening: Colonoscopy 04/19/2022 Depression Screening 04/19/2022 HIV Screening 04/19/2022 Hepatitis C Screening 04/19/2022 Social Influencers of Health Screening 04/19/2022 COVID-19 Vaccine ( season) 2024 Influenza Vaccine (Season Ended) 2025 01/04/2015, 03/01/2013, 05/05/2012, Additional history exists RSV Immunization Adult Patients (1 - 1-dose 75+ series) 2037 HIB Vaccines Aged Out No longer eligi ble based on patient's age to complete this topic HPV Vaccines Aged Out No longer eligi ble based on patient's age to complete this topic Hepatitis A Vaccines Aged Out No long er eligible based on patient's age to complete this topic Hepatitis B Vaccines Aged Out No long er eligible based on patient's age to complete this topic IPV Vaccines Aged Out No longer eligi ble based on patient's age to complete this topic MMR Vaccines Aged Out No longer eligi ble based on patient's age to complete this topic Meningococcal ACWY Vaccine Aged Out N o longer eligible based on patient's age to complete this topic Meningococcal B Vaccine Aged Out No l onger eligible based on patient's age to complete this topic Pneumococcal Vaccine: Pediatrics (0 to 5 Years) and At-Risk Patients (6 to 64 Years) Aged Out No longer eligible based on patient's age to complete this topic RSV Immunization Patients Under 20 months Aged Out No longer eligible based on patient's age to complete this topic Varicella Vaccines Aged Out No longer eligible based on patient's age to complete this topic
--- OUTSIDE RECORDS SUMMARY | 2024-09-07 12:39 | XMS_ITS | Encounter Summary ---
Author Organization [employer] Address [address] [facility] [address] [place] [address] Care Team Providers Care Panel Machine Tender Name Role Phone Name, Olayinka ROSARIO Primary Care Provider [phone] Encounter Details Date Type Department Care Team (Latest Contact Info) Description 09/07/2024 Travel Social History Tobacco Use Types Packs/Day Years Used Date Smoking Tobacco: Never Smokeless Tobacco: Never Alcohol Use Standard Drinks/Week Comments Never 0 (1 standard drink = 0.6 oz pur e alcohol) Depression Answer Date Recorded Patient Health Questionnaire-9 Score 5 05/05/2024 Patient Health Questionnaire-9 Score 5 05/05/2024 Last PHQ-9: Questionnaire Data Not on file 1 07/06/2023 Housing Stability Answer Date Recorded What is your housing situation today? I have milady claire 05/05/[address] you li ve. Do you have problems with any of the following? None of the above 05/05/2024 Food Insecurity Answer Date Recorded Within the past 12 months, y ou worried that your food would run out before you got money to buy more: Never True 05/05/2024 Within the past 12 months,th e food you bought just didn't last and you didn't have enough money to get more: Never True Transportation Answer Date Recorded In the past 12 months, has l ack of transportation kept you from medical appts, meetings, work or from getting things needed for daily living? No 05/05/2024 Utilities Answer Date Recorded In the past 12 months, has t he electric, gas, oil or water company threatened to shut off services in your home? No 05/05/2024 Depression Answer Date Recorded Patient Health Questionnaire-2 Score 0 05/05/2024 Internet Access Answer Date Recorded Internet Access Q1 Yes 05/05/2024 Internet Access Q2 Not on file 05/05/2024 Comments Unknown Sex and Gender Information Value [...] Description 02/22/2025 10:00 AM EDT Office Visit [facility] ADULT DENTAL [address] [place] [address] Blanche Wilkerson documented as of this encounter Visit Diagnoses Not on filedocumented in this encounter Additional Health Concerns Assessment Noted Time PHQ-9 Depression Total Score: 5 05/05/20 24 9:05 AM EST documented as of this encounter Care Teams Panel Machine Tender Relationship Specialty Start Date End Date Name, MD Olayinka [address] [place] [address] PCP - General Family Medicine 08/06/15 documented as of this encounter
--- OUTSIDE RECORDS SUMMARY | 2024-09-07 12:39 | XMS_ITS | Encounter Summary ---
Author Organization [facility] [facility] Address [address] [place] [address] [address] [place] [address] Care Team Providers Care Gasfitter Name Role Phone Name, Olayinka ROSARIO Primary Care Provider [phone] Encounter Details Date Type Department Care Team (Late st Contact Info) Description 10/08/2022 Abstract [facility] MEDICINE [address] [place] [address] Name, MD Olayinka [address] [place] [address] Social History Tobacco Use Types Packs/Day Years Used Date Smoking Tobacco: Never Smokeless Tobacco: Never Alcohol Use Standard Drinks/Week Comments Never 0 (1 standard drink = 0.6 oz pur e alcohol) Depression Answer Date Recorded Patient Health Questionnaire-9 Score 16 09/29/2022 Depression Answer Date Recorded Patient Health Questionnaire-2 Score 6 09/29/2022 Comments Unknown Sex and Gender Information Value Date Recorded Sex Assigned at Female 03/16/2022 10:24 AM EDT Legal Sex Female 10:24 AM EDT Gender Identity Female 03/16/2022 10:24 AM EDT Sexual Orientation Straight 03/16/2022 10 :24 AM EDT COVID-19 Exposure Response Date Recorded In the last 10 days, have yo u been in contact with someone who was confirmed or suspected to have Coronavirus/COVID-19? No / Unsure 10/07/2022 3:29 PM EDT documented as of this encounter Plan of Treatment Upcoming Encounters Date Type Department Care Team (Late st Contact Info) Description 02/22/2025 10:00 AM EDT Office Visit [facility] ADULT DENTAL [address] [place] [address] Blanche Wilkerson documented as of this encounter Procedures Procedure Name Priority Date/Time Associated Diagnosis Comments COLONOSCOPY Routine 06/20/2019 9:08 AM EST documented in this encounter Results * Hm Colonoscopy (06/20/2019 9:08 AM EST) Colonoscopy Normal Normal Narrative Aixa Licea - 06/20/2019 9:08 AM EST Recommended 10 year follow up Historical Provider MD HEALTH MAINTENANCE Final Result documented in this encounter Visit Diagnoses Not on filedocumented in this encounter Additional Health Concerns Assessment Noted Time PHQ-9 Depression Total Score: 16 09/29/ 023 11:19 AM EDT documented as of this encounter Care Teams Gasfitter Relationship Specialty Start Date End Date Name, MD Olayinka [address] [place] [address] PCP - General Family Medicine 08/06/15 documented as of this encounter
--- OUTSIDE RECORDS SUMMARY | 2024-09-07 12:40 | XMS_ITS | Encounter Summary ---
Author Organization [employer] [facility] Address [address] [place] [address] [address] [place] [address] Care Team Providers Care International Sales Representative Name Role Phone Name, Olayinka ROSARIO Primary Care Provider [phone] Reason for Visit * Reason Comments Joint Pain Encounter Details Date Type Department Care Team ([facility] st Contact Info) Description 09/07/2024 10:30 AM EDT Office Visit [facility] MEDICINE [address] [place], [place] [id number] Name, MD Olayinka [address] [place] [address] Ankle swelling, unspecified laterality (Primary Dx); Hip pain, unspecified laterality; Arthralgia, unspecified joint Social History Tobacco Use Types Packs/Day Years Used Date Smoking Tobacco: Never Smokeless Tobacco: Never Tobacco Cessation:Counseling Given: Not Answered Alcohol Use Standard Drinks/Week Comments Never 0 (1 standard drink = 0.6 oz pur e alcohol) Depression Answer Date Recorded Patient Health Questionnaire-9 Score 5 05/05/2024 Patient Health Questionnaire-9 Score 5 05/05/2024 Last PHQ-9: Questionnaire Data Not on file 1 07/06/2023 Housing Stability Answer Date Recorded What is your housing situation today? I have milady alethea 05/05/[address] you li [...] AM EDT documented as of this encounter Last Filed Vital Signs Vital Sign Reading Time Taken Comments Blood Pressure 154/81 09/07/2024 10:23 AM EDT Pulse 75 09/07/2024 10:23 AM EDT Temperature 36.9 ??C (98.5 ??F) 09/07/2024 10:23 AM E DT Respiratory Rate 14 09/07/2024 10:23 AM EDT Oxygen Saturation 95% 09/07/2024 10:23 AM EDT Inhaled Oxygen Concentration - - Weight 67.9 kg (149 lb 9.6 oz) 09/07/2024 10:23 AM EDT Height 154.9 cm (5' 1 ) 09/07/2024 10:23 AM EDT Body Mass Index 28.27 09/07/2024 10:23 AM EDT documented in this encounter Plan of Treatment Upcoming Encounters Date Type Department Care Team (Late st Contact Info) Description 02/22/2025 10:00 AM EDT Office Visit [facility] ADULT DENTAL [address] [place] [address] Blanche Wilkerson Scheduled Orders Name Type Priority Associated Diagnoses Orde r Schedule XR Hip 2 or 3 Views Left Imaging Routine Arthralgia, unspecified joint Ankle swelling, unspecified laterality Hip pain, unspecified laterality Expected: 09/07/2024, Expires: 09/07/2025 XR Hip 2 or 3 Views Right Imaging Routine Arthralgia, unspecified joint Ankle swelling, unspecified laterality Hip pain, unspecified laterality Expected: 09/07/2024, Expires: 09/07/2025 XR Ankle 3+ Views Left Imaging Routine Arthralgia, unspecified joint Ankle swelling, unspecified laterality Hip pain, unspecified laterality Expected: 09/07/2024, Expires: 09/07/2025 XR Ankle 3+ Views Right Imaging Routine Arthralgia, unspecified joint Ankle swelling, unspecified laterality Hip pain, unspecified laterality Expected: 09/07/2024, Expires: 09/07/2025 CBC auto differential Lab Routine Arthralgia, unspecified joint Ankle swelling, unspecified laterality Hip pain, unspecified laterality Expected: 09/07/2024 (Approximate), Expires: 09/07/2025 Basic Metabolic Panel Lab Routine Arthralgia, unspecified joint Ankle swelling, unspecified laterality Hip pain, unspecified laterality Expected: 09/07/2024 (Approximate), Expires: 09/07/2025 C-reactive Protein Lab Routine Arthralgia, unspecified joint Ankle swelling, unspecified laterality Hip pain, unspecified laterality Expected: 09/07/2024 (Approximate), Expires: 09/07/2025 Rheumatoid Factor Lab Routine Arthralgia, unspecified joint Ankle swelling, unspecified laterality Hip pain, unspecified laterality Expected: 09/07/2024, Expires: 09/07/2025 MARY Screen,IFA, with Reflex to Titer and Pattern Lab Routine Arthralgia, unspecified joint Ankle swelling, unspecified laterality Hip pain, unspecified laterality Expected: 09/07/2024 (Approximate), Expires: 09/07/2025 Lyme Disease Ab with Reflex to Blot (IgG, IgM) Lab Routine Arthralgia, unspecified joint Ankle swelling, unspecified laterality Hip pain, unspecified laterality Expected: 09/07/2024, Expires: 09/07/2025 documented as of this encounter Visit Diagnoses Diagnosis Ankle swelling, unspecified laterality- Primary Hip pain, unspecified laterality Arthralgia, unspecified joint documented in this encounter Additional Health Concerns Assessment Noted Time PHQ-9 Depression Total Score: 5 05/05/20 24 9:05 AM EST documented as of this encounter Care Teams International Sales Representative Relationship Specialty Start Date End Date Name, MD Olayinka [address] [place] [address] PCP - General Family Medicine 08/06/15 documented as of this encounter
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
[2024-09-07 13:03] LABS: MANUAL DIFF FLAG NO
[2024-09-07 13:21] LABS: Basophils Absolute Auto 0.1 X10*3/uL (0.0-0.2); Basophils Percent Auto 0.8 % (0-2); Eosinophils Absolute Auto 0.2 X10*3/uL (0.0-0.4); Eosinophils Percent Auto 2.5 % (0-4); Hematocrit 39.9 % (37.0-47.0); Hemoglobin 13.9 g/dl (12.0-16.0); Imm Gran Abs Auto 0.03 X10*3/uL (0.00-0.03); Imm Gran Pct Auto 0.5 % (0.0-0.4); Lymphocytes Absolute Auto 1.7 X10*3/uL (1.2-4.9); Lymphocytes Percent Auto 28.5 % (20-40); Mean Corpuscular HGB Conc 34.8 g/dl (31.0-35.0); Mean Corpuscular Hemoglobin 32.4 pg (27.0-33.0); Mean Platelet Volume 10.9 fL (9.4-12.3); Monocytes Absolute Auto 0.6 X10*3/uL (0.1-1.2); Monocytes Percent Auto 9.9 % (2-11); Neutrophils Absolute Auto 3.5 x10*3/uL (2.0-8.3); Neutrophils Percent Auto 57.8 % (45-73); Platelet Count 251 X10*3/uL (160-400); Red Blood Count 4.29 X10*6/uL (4.20-5.50); Red Cell Distribution Width 12.5 % (11.0-16.0)
[2024-09-07 13:27] LABS: Rheumatoid Factor 14.6 IU/mL (<15.0)
[2024-09-07 13:28] LABS: Anion Gap 12 (12-20); Blood Urea Nitrogen 13 mg/dL (9-16); C Reactive Protein 0.51 mg/dL (< or = 0.50); Carbon Dioxide 25 mmol/L (22-29); Chloride 106 mmol/L (96-108); Estimated Glomerular Filt Rate > 60; Glucose Random 97 mg/dL (60-115); Potassium 3.6 mmol/L (3.3-5.1); Sodium 139 mmol/L (135-145)
[2024-09-08 05:58] LABS: Lyme Abs Screen <0.90 index
[2024-09-12 11:24] LABS: Anti Nuclear Antibody Pattern Nuclear, Homogeneous; Anti Nuclear Antibody Screen POSITIVE (NEGATIVE)
== END 2024-09-07 10:48 | disposition home or self-care (01) ==
LOC: HO.HHCL 10:47
PROVIDERS: Visit Provider Internal Medicine Geriatric Medicine
DX: M25.473 Effusion, unspecified ankle (principal); M25.50 Pain in unspecified joint; M25.559 Pain in unspecified hip
CPT/HCPCS: 36415; 73502; 73610; 80048; 85025; 86038; 86039; 86140; 86431; 86617; 86618

== ENCOUNTER → 2024-09-07 11:26 | Outpatient (BNV) | payer MEDICAID, SELFPAY | PROVIDERS: Visit Provider Radiology Diagnostic Radiology | DX: M25.552 Pain in left hip (principal) | CPT/HCPCS: 73502; 73610 ==

== ENCOUNTER 2024-12-27 17:54 | Outpatient (REF) | payer OTHER, SELFPAY ==
[2024-12-27 18:03] LABS: Appearance Urine Clear; Glucose Urine UA Negative (Negative); PH 6.5 (5.0-9.0); Specific Gravity - Urine 1.015 (1.005-1.025); UMIC TRIGGER UACC YES
[2024-12-27 18:05] LABS: UACC Culture Trigger YES
== END 2024-12-27 17:55 | disposition home or self-care (01) ==
LOC: HO.LNP 17:54
PROVIDERS: Visit Provider Internal Medicine Geriatric Medicine
DX: N39.0 Urinary tract infection, site not specified (principal); R31.9 Hematuria, unspecified
CPT/HCPCS: 81001; 87086

== ENCOUNTER 2025-01-10 12:30 | Outpatient (REF) | payer OTHER, SELFPAY ==
--- NOTE | ~2025-01-10 | XR_ITS ---
EXAMINATION: XR SHOULDER, RIGHT CLINICAL INFORMATION: chronic neck pain and right shoudler pain COMPARISON: None available. TECHNIQUE: AP external rotation, Grashey, scapular Y, and axillary views of the right shoulder. FINDINGS: There is no degenerative change, dislocation, or AC joint separation. No fracture is identified. XR/XR shoulder RT min 2V IMPRESSION: Unremarkable right shoulder. Electronically signed by: Merrick Hastings MD 01/10/2025 01:11 PM EDT
--- NOTE | ~2025-01-10 | XR_ITS ---
EXAMINATION: XR CERVICAL SPINE CLINICAL INFORMATION: chronic neck pain and right shoudler pain COMPARISON: None available. TECHNIQUE: 3 views of the cervical spine were obtained. FINDINGS: C4-5: Ossified is narrow the right neural foramen. C5-6: Osteophytes narrow the left neural foramen C6-7 demonstrates mild disc space narrowing with anterior osteophytes. Vertebral body height is preserved. There is mild straightening of lower cervical spine. There is no prevertebral edema. XR/XR cervical spine 5V IMPRESSION: Degenerative changes are evident at C4-5, C5-6, and C6-7. Electronically signed by: Merrick Hastings MD 01/10/2025 01:14 PM EDT RP
--- OUTSIDE RECORDS SUMMARY | 2025-01-10 11:30 | XMS_ITS | Encounter Summary ---
Author Organization [employer] Address [address] [place] [phone] Care Team Providers Care Event Executive Name Role Phone Name, Olayinka ROSARIO Primary Care Provider [phone] Reason for Referral * Consultation (Routine) - Pending Review Specialty Diagnoses / Procedures Referred By Lenin islas Referred To Contact Physical Therapy Diagnoses Neck pain Right anterior shoulder pain Deya Gutiérrez MD [address] [place] [phone] Phone: tel: fax: Referral ID Status Reason Start Date Expiration Date Visits Requested Visits Authorized [id number] Pending Review Specialty Services Required 01/10/2025 01/10/2026 1 1 Encounter Details Date Type Department Care Team (Late st Contact Info) Description 01/10/2025 11:30 AM EDT Office Visit [facility] [address] [place] [address] [phone] Deya Gutiérrez MD [address] [place] [address] [phone] Neck pain (Primary Dx); Right anterior shoulder pain Social History Tobacco Use Types Packs/Day Years [...] Sign Reading Time Taken Comments Blood Pressure 128/80 01/10/2025 11:52 AM EDT Pulse 72 01/10/2025 11:52 AM EDT Temperature 36.3 C (97.3 F) 01/10/2025 11:52 AM EDT Respiratory Rate 20 01/10/2025 11:52 AM EDT Oxygen Saturation 99% 01/10/2025 11:52 AM EDT Inhaled Oxygen Concentration - - Weight 67 kg (147 lb 12.8 oz) 01/10/2025 11:52 A M EDT Height 154.9 cm (5' 1 ) 01/10/2025 11:52 AM EDT Body Mass Index 27.93 01/10/2025 11:52 AM EDT documented in this encounter Plan of Treatment Upcoming Encounters Date Type Department Care Team (Late st Contact Info) Description 02/22/2025 10:00 AM EDT Office Visit [facility] [address] [place] [address] Blanche Wilkerson Scheduled Orders Name Type Priority Associated Diagnoses Orde r Schedule XR Shoulder 2+ Views Right Imaging Routine Neck pain Right anterior shoulder pain Expected: 01/10/2025, Expires: 01/10/2026 XR Cervical Spine 5 View Imaging Routine Neck pain Right anterior shoulder pain Expected: 01/10/2025, Expires: 01/10/2026 Scheduled Referrals Name Type Priority Associated Diagnoses Orde r Schedule Referral to Physical Therapy Outpatient Referral Routine Neck pain Right anterior shoulder pain Expected: 01/10/2025 (Approximate), Expires: 01/10/2026 documented as of this encounter Visit Diagnoses Diagnosis Neck pain- Primary Cervicalgia Right anterior shoulder pain documented in this encounter Additional Health Concerns Assessment Noted Time PHQ-9 Depression Total Score: 5 05/05/20 24 9:05 AM EST documented as of this encounter Care Teams Event Executive Relationship Specialty Start Date End Date Name, MD Olayinka [address] [place] [address] PCP - General Family Medicine 08/06/15 documented as of this encounter
--- OUTSIDE RECORDS SUMMARY | 2025-01-10 13:00 | XMS_ITS | Encounter Summary ---
Author Organization [facility] Address [address] [place] [address] 7 [place] [address] Care Team Providers Care Lead Setter Name Role Phone Name, Olayinka ROSARIO Primary Care Provider [phone] Encounter Details Date Type Department Care Team (Late Contact Info) Description 10/08/2022 Abstract [facility] [address] [place], [place] [phone] Name, MD Olayinka [address] [place] [address] Social History Tobacco Use Types Packs/Day Years [...] Encounters Date Type Department Care Team (Late Contact Info) Description 02/22/2025 10:00 AM EDT Office Visit [facility] [address] [place] [address] Blanche Wilkerson documented as of this encounter Procedures Procedure Name Priority Date/Time Associated Diagnosis Comments COLONOSCOPY Routine 06/20/2019 9:08 AM EST documented in this encounter Results * Hm Colonoscopy (06/20/2019 9:08 AM EST) Colonoscopy Normal Normal Narrative Aixa Licea - 06/20/2019 9:08 AM EST Recommended 10 year follow up Historical Provider HEALTH MAINTENANCE Final Result documented in this encounter Visit Diagnoses Not on filedocumented in this encounter Additional Health Concerns Assessment Noted Time PHQ-9 Depression Total Score: 16 09/29/ 023 11:19 AM EDT documented as of this encounter Care Teams Lead Setter Relationship Specialty Start Date End Date Name, MD Olayinka [address] [facility] [place] [address] PCP - General Family Medicine 08/06/15 documented as of this encounter
--- OUTSIDE RECORDS SUMMARY | 2025-01-10 13:00 | XMS_ITS | Clinical Summary ---
Author Organization [employer] Address [address] [facility] [address] [place] [address] Care Team Providers Care Serger Name Role Phone Name, Olayinka ROSARIO Primary Care Provider [phone] Allergies No known active allergies Medications * This document contains information received from the source organization and may not represent a complete record from that organization. cholecalciferol (Vitamin D-3) 50 MCG (1999) tablet Take 1 tablet by mouth at bed time. 09/23/19 22 Active lidocaine (Lidoderm) 5 % patch Apply 1 patch topically in the morning. Remove & discard patch within 12 hours or as directed by . 30 patch 09/30/19 23 Active Additional Information Patient not taking.Reported on 01/10/2025 Blood Pressure Monitoring (Blood Pressure Kit) device 1 Device in the morning. 1 each 09/30/19 23 Active carbamide peroxide (Debrox) 6.5 % otic solution Use 5 drops to right ear nightly for one week, chinese 15 mL 01/29/20 23 Active Acetaminophen Extra Strength 500 MG tabletIndicatio ns:Acquired hypothyroidism, Chronic bilateral low back pain with right-sided sciatica,Pain TAKE 1 TABLET BY MOUTH EVERY 8 HOURS NEEDED FOR PAIN 90 tablet 1 01/25/20 24 Active baclofen (Lioresal) 20 MG tabletIndicatio ns:Acute on chronic low back pain Take 1 tablet (20 mg) by mouth 2 times daily for 20 days. 40 tablet 05/05/20 24 Active Additional Information Patient not taking.Reported on 01/10/2025 omeprazole (PriLOSEC) [address] capsule Take 1 capsule (20 mg) by mouth before breakfast. Do not crush or chew. 30 capsule 11 08/29/19 25 026 Active levothyroxine (Synthroid, Levoxyl) 112 MCG tabletIndicatio ns:Acquired hypothyroidism, Chronic bilateral low back pain with right-sided sciatica,Pain TAKE 1 TABLET BY MOUTH EVERY DAY BEFORE BREAKFAST 90 tablet 1 11/22/19 25 Active gabapentin (Neurontin) 100 MG capsuleIndicati ons:Fibromyalgi a Take 1 capsule (100 mg) by mouth at bedtime for 7 days, THEN 1 capsule (100 mg) 2 times daily for 7 days, THEN 1 capsule (100 mg) every 8 (eight) hours. 111 capsule 2 12/28/19 25 025 Active losartan (Cozaar) 25 MG tabletIndicatio ns:Hypertension , unspecified type Take 1 tablet (25 mg) by mouth Once per day. 30 tablet 11 01/11/20 25 026 Active Additional Information Patient not taking.Reported on 01/10/2025 lidocaine-prilo miryam (Emla) 2.5-2.5 % creamIndication s:Neck pain,Right anterior shoulder pain Apply topically if needed each day for mild pain. 30 g 01/11/20 25 Active Diclofenac Sodium 1 % gelIndications: Neck pain,Right anterior shoulder pain Apply 1 Application topically if needed each day (neck/shoudler pain). 50 g 01/11/20 25 Active cyclobenzaprine (Flexeril) 5 MG tabletIndicatio ns:Neck pain,Right anterior shoulder pain Take 1 tablet (5 mg) by mouth if needed at bedtime for muscle spasms for up to 10 days. 10 tablet 01/11/20 25 025 Active cyclobenzaprine (Flexeril) 10 MG tablet Take 10 mg by mouth if needed in the morning, at noon, and at bedtime. 01/23/20 15 025 Discontinued sulfamethoxazol e-trimethoprim (Bactrim DS) 800-160 MG tabletIndicatio ns:Urinary tract infection with hematuria, site unspecified Take 1 tablet by mouth 2 times daily for 3 days. 6 tablet 12/28/19 25 025 Active Problems Problem Noted Date Diagnosed Date Fibromyalgia 12/27/2024 Hypertension 12/27/2024 Generalized chronic severe periodontitis 024 Severe generalized [...] call clinic to request image results-may need PSYCH SALES SPECIALIST referral if symptoms persist despite US -alarm [...] Encounters Date Type Department Care Team Description 01/10/2025 11:30 AM EDT Office Visit [facility] [address] [place] [phone] Deya Gutiérrez MD Neck pain (Primary Dx); Right anterior shoulder pain 01/10/[address] [phone] Olayinka Mederos MD Blood Pressure 01/10/2025 Travel 12/28/2024 Telephone [facility] [address] [place], [place] [phone] Olayinka Mederos MD Durable Medical Equipment 12/27/2024 10:30 AM EDT Office Visit [address] [address] Olayinka Mederos MD Fibromyalgia (Primary Dx); Urinary tract infection with hematuria, site unspecified; Dysuria; Mixed stress and urge urinary incontinence; Hypertension, unspecified type 12/27/2024 Orders Only [facility] [address] [place] [address] Olayinka Mederos MD 12/27/2024 Travel 11/19/2024 Refill [facility] [address] [place] [address] Olayinka Mederos MD Acquired hypothyroidism; Chronic bilateral low back pain with right-sided sciatica; Pain from Last 3 Months Immunizations Immunization Administration Dates Next Due Influenza Injectable Quadriv alant Preservative Free IIV4 MDCK 04/24/2022 Influenza injectable quadriv alent IIV4 with preservative 02/26/2017 Influenza injectable quadriv alent preservative free 02/15/2023,04/01/2021,02/07/2020 Influenza, IIV3, injectable 03/01/2013,1 07/06/2011,02/12/2010,2008 Influenza, Unspecified 03/15/2014 Influenza, seasonal, injecta ble, preservative free 01/25/2024,02/26/2016,01/04/2015 Novel [id number], preservative-free 04/23/2009 PPD Test 09/28/2012,11/25/2010,05/31/2009 Tdap 08/11/2021,02/12/2010 [...] Mass Index 27.93 01/10/2025 11:52 AM EDT Plan of Treatment Upcoming Encounters Date Type Department Care Team (Late st Contact Info) Description 02/22/2025 10:00 AM EDT Office Visit [facility] [address] [place] [address] Blanche Wilkerson Health Maintenance Due Date Last Done Comments CT Colonography 1960 FIT DNA/Cologuard 1960 FIT 1960 FOBT 1960 HIV Screening 1960 Lipid Panel 1960 Sigmoidoscopy 1960 Hepatitis C Screening 1980 Pneumococcal Vaccine: 50+ Years (1 of 1 - PCV) 2012 COVID-19 Vaccine ( - season) 2024 10/08/2021, 04/01/2021, 08/22/2020, Additional history exists Mammogram 05/25/2024 05/25/2022, 11/2021, 03/29/2018 Influenza Vaccine (#1) 2025 , 02/15/2023, 04/24/2022, Additional history exists Dental Oral Exam 02/16/2025 08/16/2024, 06/25/2023 Dental Prophylaxis 02/16/2025 08/16/2024, 0 06/25/2023, 07/17/2022 Dental X-Ray: Full Mouth 03/17/2025 03/16/2022 Depression Screening 05/05/2025 05/05/2024, 05/05/20 24 SDOH Screening 05/05/2025 05/05/2024 Dental X-Ray: Bitewings 08/17/2025 08/16/2024, 06/25 Alcohol/Substance Use Screening 12/27/2025 12/27/2024 Disability Screening 12/27/2025 12/27/2024 Tobacco Screening 01/10/2026 01/10/2025 Cervical Cancer Screening 03/30/2028 HPV/Cotest 03/30/2028 03/15/2019 Pap Smear 03/30/2028 03/30/2023 Colonoscopy 06/20/2029 06/20/2019 Colorectal Cancer Screening 06/20/2029 DTaP/Tdap/Td Vaccines (3 - Td or Tdap) 08/12/2031 08/11/2021, 02/12/2010 RSV Patients and Patients Aged 60 years or older (1 - 1-dose 75+ series) 2037 Zoster Vaccines Completed 04/22/2023, 02/19/2023 HIB Vaccines Aged Out No longer eligi [...] Procedure Name Priority Date/Time Associated Diagnosis Comments POCT URINALYSIS DIPSTICK Routine 12/27/2024 11:00 AM EDT Dysuria URINALYSIS, COMPLETE, WITH REFLEX TO CULTURE Routine 12/27/2024 12:00 AM EDT Urinary tract infection with hematuria, site unspecified CULTURE, URINE, ROUTINE Routine 12/27/2024 12:00 AM EDT PROPHYLAXIS - ADULT Routine 08/16/2024 3 :00 PM EDT Dental calculus Dental plaque Periodontal disease BITEWINGS - 4 RADIOGRAPHIC IMAGES Routine 08/16/2024 3:00 PM EDT PERIODIC ORAL EVALUATION - ESTABLISHED PATIENT Routine 08/16/2024 3:00 PM EDT PAP SMEAR Routine 03/30/2023 3:54 PM EST BI MAMMOGRAM SCREENING TOMOSYNTHESIS BILATERAL Routine 05/25/2022 3:57 PM EST HM COLONOSCOPY Routine 06/20/2019 9:08 AM EST ZZZ HISTORICAL HPV MRNA E6/E7 Routine 03/15/2019 2:48 PM EDT from Last 3 Months or Most Recently Relevant to Health Maintenance Results * (ABNORMAL) POCT Urinalysis (12/27/2024 11:00 AM EDT) Color, UA Yellow Clarity, UA Clear Glucose, UA Negative Bilirubin, UA Negative Ketones, UA Negative Spec Grav, UA 1.020 Blood, UA Positive(A) Negative, None Detected Comment:small pH, UA 7.0 Protein, UA Negative Urobilinogen, UA 0.2 Leukocytes, UA Moderate(A) Negative, Rare, Trace Nitrite, UA Negative Negative, None Detected Appearance, UA yellow QC Media Lot # [id number] Lot# Expiration Date [id number] Urine 12/27/2024 11:0 0 AM EDT Olayinkaliyah Mederos MD POINT OF CARE TEST ENTER/EDIT OR DERABLES Final Result * (ABNORMAL) Urinalysis, Complete, with Reflex to Culture (12/27/2024 12:00 AM EDT) Color Urine Yellow [facility] Appearance Urine Clear [facility] PH 6.5 5.0 - 9.0 [facility] Glucose Urine UA Negative Negative mg/dL [facility] Urine Blood Trace(A) Negative [facility] Specific [place] - Urine 1.015 1.005 - 1.025 [facility] Urine Protein Negative Neg-Trace mg/dL [facility] Urine Ketones Negative Negative mg/dL [facility] Nitrite Urine Negative Negative [facility] Leukocyte Esterase Urine Large (3+)(A) Negative [facility] RBC Urine 0-2 0 - 2 /HPF [facility] Urine WBC 6-10(A) 0 - 5 /HPF [facility] Urine Squamous Epithelial Cell 3-5 0 - 2 /HPF [facility] Urine Bacteria None Seen None Seen [facility] Hyaline Casts, Urine 0-2 0 - 2 /LPF [facility] Urine 12/27/2024 12/27/2024 Narrative [facility] - 12/27/2024 6:16 PM EDT Urine, Clean Catch Olayinka Mederos MD LAB URINE ORDERABLES Final Resul t Performing Organization Address [facility]/ZIP Co de Phone Number [facility] [address] [place] [phone] * Culture, Urine, Routine (12/27/2024 12:00 AM EDT) Urine Urine specimen obtained by clean catch procedure / Unknown 12/27/2024 12/27/2024 Comment:[facility] - 12/29/2024 8:54 AM EDT Urine Culture Report Result Urine Culture > 100,000 cfu/ml Urine Culture Mixed bacterial gema characteristic of Urine Culture urogenital contamination. Specimen Source: Urine clean catch Olayinka Mederos MD LAB MICROBIOLOGY - GENERAL ORDER JIMMIE Final Result Performing Organization Address [facility] Co de Phone Number [facility] [address] [place] [phone] * Pap Smear (03/30/2023 3:54 PM EST) 03/30/2023 3:54 PM EST 03/31/2023 7:30 AM EST [facility] - 04/16/2023 1:39 PM EST ----- ------- Name: Makayla Barnes Age/Sex: 62/F : 1960 Unit#: [id number] Attend Dr: Devon Kaur MD Re03/30/23 Status: DEP REF Location: [facility] Disch: ----- ------- SPEC : [id number] RECD: 03/31/23 STATUS: JERI SKY NUM: [id number] SCOT: 03/30/23 [facility] DR: Devon Kaur MD ENTERED: 03/31/23 SP TYPE: Pap Smr [facility] DR: Olayinka Mederos MD ORDERED: Pap Smear Interpretation Satisfactory for evaluation. Moderate inflammation. Negative for intraepithelial lesion or malignancy. HPV mRNA E6/E7: NOT DETECTED This assay detects E6/E7 viral messenger RNA (mRNA) from 14 high-risk HPV types (16, 18, 31, 33, 35, 39, 45, 51, 52, 56, 58, 59, 66, 68) HPV testing performed by [facility], [place], [place]. See reference laboratory portion of the EMR for entire report. Clinical Information LMP: Postmenopausal Previous PAP test: Unknown date/findings Other history: Postmenopausal bleeding Material Received ThinPrep-Cervical Copies To: Olayinka Mederos MD [address] [place] [phone] Devon Kaur MD [address] [place], [place] [address] [address] ----- ------- Signed (signature on file) EULOGIO Reid ([facility]) 04/16/23 1339 ----- ------- END OF REPORT us Generic External Data Provider LAB CYTOLOGY JORDYN WILKES Final Result [facility] [address] [place] [address] [phone] * BI Mammogram Screening Tomosynthesis Bilateral (05/25/2022 3:57 PM EST) Anatomical Region Laterality Modality Breast Bilateral Mammography 05/25/2022 3:57 PM EST Narrative 05/27/2022 6:51 PM EST [facility] [address] [place] [address] Mammography Report Signed Patient: Makayla Barnes MR#: [id number] : 1960 Acct:[id number] Age/Sex: 61 / F ADM Date: 05/25/22 Loc: HO.MAMMO Attending Dr: Olayinka Mederos MD Ordering Physician: Olayinka Mederos MD Results: 1Negative Date of Service: 05/25/22 Follow Up: 1 Year From Orig inal Mammogram Procedure(s): MM tomosynthesis screening BI Accession Number(s): [id number] cc: Olayinka Mederos MD EXAMINATION: MM SCREENING [...] signed by Román Santos MD in OV> 05/27/221847 DD/ 1557 TD/TT: Dynamotor Repairer: SK Procedure Note Donotuseinterpreter, Image - 05/27/20[facility] [address] [place] [address] Mammography Report Signed Patient: Juana BarnesR#: [id number] : 1960Acct:[id number] Age/Sex: 61 / FADM Date: 05/25/22 Loc: HO.MAMMO Attending Dr: Olayinka Mederos MD Ordering Physician: Olayinka Mederos MDResults: 1Negative Date of Service: 05/25/22Follow Up: 1 Year From Orig inal Mammogram Procedure(s): MM tomosynthesis screening BI Accession Number(s): [id number] cc: Olayinka Mederos MD EXAMINATION: MM SCREENING [...] signed by Román Santos MD in OV> 05/27/228 DD/ 1557 TD/TT: Dynamotor Repairer: DEBBIE [facility] External Provider IMG BI PROCEDURES Edited Result - Final * Hm Colonoscopy (06/20/2019 9:08 AM EST) Colonoscopy Normal Normal Narrative Aixa Licea - 06/20/2019 9:08 AM EST Recommended 10 year follow up Historical Provider MD HEALTH MAINTENANCE Final Result * HPV mRNA E6/E7 (03/15/2019 2:48 PM EDT) HPV mRNA E6/E7 Not Detected NOT DETECTED [facility] Comment: This test was performed using the APTIMA(R) HPV Assay ([employer] This assay detects E6/E7 viral messenger RNA (mRNA) from 14 high-risk HPV types (16,18,31,33,35,39,45,51, 52,56,58,59,66,68). For additional information please refer to: http://education.[employer]/faq/CYO535e5 (This link is being provided for informational/ educational purposes only.) The analytical performance characteristics of this assay have been determined by [employer] [place], [place]. The modifications have not been cleared or approved by the FDA. This assay has been validated pursuant to the CLIA regulations and is used for clinical purposes. Test Performed by [facility], [facility], [address] [place] [address] Deepak Fleming M.D., Ph.D., Director of Laboratories , CLIA [id number] Please note: Effective 01/27/2016, HPV testing will be performed using [employer]'s APTIMA test which targets mRNA. Detecting mRNA instead of DNA, as in older methods, offers significant improvements in specificity. 03/15/2019 2:48 PM EDT Eryn Alfaro CNM HISTORICAL/NON ORDERABLE LABS Final Result [facility] [address] [place] [address], [place] from Last 3 Months or Most Recently Relevant to Health Maintenance Insurance [employer] < 65 [place] ADULT Care Teams Serger Relationship Specialty Start Date End Date Name, MD Olayinka [address] [place] [address] PCP - General Family Medicine 08/06/15
--- OUTSIDE RECORDS SUMMARY | 2025-01-10 13:00 | XMS_ITS | Encounter Summary ---
Author Organization [facility] Address [address] [place] [address] [address] [place] [address] Care Team Providers Care Liquor Clerk Name Role Phone Name, Olayinka ROSARIO Primary Care Provider [phone] Encounter Details Date Type Department Care Team (Latest Contact Info) Description 01/25/2019 Abstract [facility] CONVERSIONS Dental, Provider, DDS Social [...] Upcoming Encounters Date Type Department Care Team ( st Contact Info) Description 02/22/2025 10:00 AM EDT Office Visit [facility] [address] [place] [address] Blanche Wilkerson documented as of this encounter Visit Diagnoses Not on filedocumented in this encounter Care Teams Liquor Clerk Relationship Specialty Start Date End Date Name, MD Olayinka [address] [place] [address] PCP - General Family Medicine 08/06/15 documented as of this encounter
--- OUTSIDE RECORDS SUMMARY | 2025-01-10 13:00 | XMS_ITS | Encounter Summary ---
Author Organization [employer] [facility] Address [address] [place] [address] [address] [place] [address] Care Team Providers Care Buffer Nickel Name Role Phone Name, Olayinka ROSARIO Primary Care Provider [phone] Encounter Details Date Type Department Care Team (Latest Contact Info) Description 03/16/2022 Abstract [facility] CONVERSIONS Dental, Provider, DDS Social History [...] Description 02/22/2025 10:00 AM EDT Office Visit [facility] ADULT [facility] [address] [place] [address] Blanche Wilkerson documented as of this encounter Visit Diagnoses Not on filedocumented in this encounter Care Teams Buffer Nickel Relationship Specialty Start Date End Date Name, MD Olayinka [address] [place] [address] PCP - General Family Medicine 08/06/15 documented as of this encounter
--- OUTSIDE RECORDS SUMMARY | 2025-01-10 13:00 | XMS_ITS | Encounter Summary ---
Author Organization [employer] Address [address] [facility] 7 [place] [address] Care Team Providers Care Biology Professor Name Role Phone Name, Olayinka ROSARIO Primary Care Provider [phone] Reason for Visit * Reason Onset Date Comments Blood Pressure 01/10/2025 Encounter Details Date Type Department Care Team ([facility] Contact Info) Description 01/10/2025 Telephone [facility] MEDICINE [address] [place], [place] [id number] Name, MD Olayinka [address] [place] [address] Blood Pressure Social History Tobacco Use Types Packs/Day Years [...] AM EDT documented as of this encounter Miscellaneous Notes * Addendum Note - Olayinka Maloney MD - 01/10/2025 11:37 AM EDTAddended by: OLAYINKA MALONEY on: 01/10/2025 11:37 AM Modules accepted: Orders * Telephone Encounter - Olayinka Maloney MD - 01/10/2025 11:35 AM EDT I will start her on BP meds. I am sending losartan to the pharmacy. She should check BMP next week,keep checking BP at home and give her another tele in a week for BP check * Telephone Encounter - Lelia Brink RN - 01/10/2025 10:52 AM EDT S: Pt was scheduled for telephone visit with blue team nurses this morning. TC placed to pt via [employer] (Eh ID#[id number]) for telephone BP nurse visit. Pt located in the [facility]. Pt reports they have been taking BP readings daily (see BP log below). Pt denies chest pain, SOB, blurred vision, dizziness. Pt endorses neck pain that radiates down to right arm and right hip pain that radiates down the leg. Pt reports PCP is aware of joint pain pt is experiencing and has prescribed gabapentin (Neurontin) 100 MG capsule to assist with discomfort. Pt reports the gabapentin (Neurontin) 100 MG capsule does not really help with the discomfort. Pt reports pain has increased since yesterday and reports pain at a 9/10. Pt reports pain is constant. Pt reports since yesterday they have needed help getting up because of the discomfort. O: BP Lo12/27/24 AM: 141/90 12/27/24 PM: 157/100 12/28/24 AM: 153/101 12/28/24 PM: 150/88 12/29/24 AM: 139/81 12/29/24 PM: 136/93 12/30/24 AM: 154/95 12/30/24 PM: 131/87 12/31/24 AM: 147/98 12/31/24 PM: 153/93 01/01/25 AM: 137/86 01/01/25 PM: 136/89 01/02/25 AM: 142/94 01/02/25 PM: 142/93 01/03/25 AM: 151/106 01/03/25 PM: 140/88 01/04/25 AM: 147/97 01/04/25 PM: 134/91 01/05/25 AM: 176/103 01/05/25 PM: 144/97 01/06/25 AM: 151/97 01/06/25 PM: 147/98 01/07/25 AM: 161/96 01/07/25 PM: 149/95 01/08/25 AM: 146/96 01/08/25 PM: 150/96 01/09/25 AM: 144/101 01/09/25 PM: 144/88 01/10/25 AM (pt took while speaking on phone with RN): 159/102 A: Achieve goal blood pressure of <140/90 or <130/80 P: Today's findings forwarded to PCP and to (provider pt is to see today). Advised pt recommended to see provider today for symptoms of increased joint pain and elevated BP. Pt agreeable to seeprovider. Pt offered appointment at 11:00 AM with PCP. Pt reports they will not make to appointmentin time. Pt booked for appointment with at 11:30 AM. Pt agreeable to plan and denies questions at this time. Advised Sherwin Sandoval Team RN pt booked with for symptoms of increasedjoint pain and elevated BP who states they will let 's [place] aware of pt appointment. Future Appointments Date Time Provider Department Center 01/10/2025 11:30 AM Deya Man MD MEDICINE [facility] 02/22/2025 10:00 AM Blanche Rhea ADLT DENT [facility] Lelia Brink RN documented in this encounter Plan of Treatment Upcoming Encounters Date Type Department Care Team (Late st Contact Info) Description 02/22/2025 10:00 AM EDT Office Visit [facility] ADULT DENTAL [address] [place] [address] Blanche Wilkerson Scheduled Orders Name Type Priority Associated Diagnoses Orde r Schedule Basic Metabolic Panel Lab Routine Hypertension, unspecified type Expected: 01/10/2025 (Approximate), Expires: 01/10/2026 documented as of this encounter Visit Diagnoses Diagnosis Hypertension, unspecified type- Primary documented in this encounter Additional Health Concerns Assessment Noted Time PHQ-9 Depression Total Score: 5 05/05/20 24 9:05 AM EST documented as of this encounter Care Teams Biology Professor Relationship Specialty Start Date End Date Name, MD Olayinka [address] [place] [address] PCP - General Family Medicine 08/06/15 documented as of this encounter
--- OUTSIDE RECORDS SUMMARY | 2025-01-10 13:00 | XMS_ITS | Encounter Summary ---
Author Organization [employer] [facility] Address [address] [place] [address] [address] [place] [address] Care Team Providers Care Neighborhood Service Center Director Name Role Phone Name, Olayinka ROSARIO Primary Care Provider [phone] Encounter Details Date Type Department Care Team (Latest Contact Info) Description 08/16/2020 Abstract [facility] CONVERSIONS Dental, Provider, DDS Social History [...] Description 02/22/2025 10:00 AM EDT Office Visit [facility] ADULT DENTAL [address] [place] [address] Blanche Wilkerson documented as of this encounter Visit Diagnoses Not on filedocumented in this encounter Care Teams Neighborhood Service Center Director Relationship Specialty Start Date End Date Name, MD Olayinka [address] [place] [address] PCP - General Family Medicine 08/06/15 documented as of this encounter
--- OUTSIDE RECORDS SUMMARY | 2025-01-10 13:00 | XMS_ITS | Clinical Summary ---
Author Organization [facility] Address [address] [place] [address] Care Team Providers Care Suction Roller Name Role Phone Unavailable Primary Care Provider [...] 02/13/2020 02/12/2010 Colorectal Cancer Screening: Colonoscopy 04/19/2022 HIV Screening 04/19/2022 Hepatitis C Screening 04/19/2022 Social Influencers of Health Screening 04/19/2022 COVID-19 Vaccine (1 - season) 2024 Depression Screening 05/17/2024 Influenza Vaccine (#1) 2025 5, 03/01/2013, 05/05/2012, Additional history exists RSV Immunization [...]
--- OUTSIDE RECORDS SUMMARY | 2025-01-10 13:00 | XMS_ITS | Encounter Summary ---
Author Organization [facility] Address [address] [place] [address] Care Team Providers Care Flash Oven Operator Name Role Phone Name, Olayinka ROSARIO Primary Care Provider [phone] Encounter Details Date Type Department Care Team (Late st Contact Info) Description 05/07/2022 Abstract [facility] ADULT DENTAL [address] [place] [address] Faisal Feliz DDS [address] [place] [address] Social History Tobacco Use Types Packs/Day Years [...] Description 02/22/2025 10:00 AM EDT Office Visit [facility] ADULT DENTAL [address] [place] [address] Blanche Wilkerson documented as of this encounter Visit Diagnoses Not on filedocumented in this encounter Care Teams Flash Oven Operator Relationship Specialty Start Date End Date Name, MD Olayinka [address] [place] [address] PCP - General Family Medicine 08/06/15 documented as of this encounter
--- OUTSIDE RECORDS SUMMARY | 2025-01-10 13:00 | XMS_ITS | Encounter Summary ---
Author Organization [employer] Address [address] [facility] [address] [place] [address] Care Team Providers Care Educational Resource Coordinator Name Role Phone Name, Olayinka ROSARIO Primary Care Provider [phone] Encounter Details Date Type Department Care Team (Latest Contact Info) Description 01/10/2025 Travel Social History Tobacco Use Types Packs/Day [...] Description 02/22/2025 10:00 AM EDT Office Visit [facility] ADULT DENTAL [address] [place] [address] Blanche Wilkerson documented as of this encounter Visit Diagnoses Not on filedocumented in this encounter Additional Health Concerns Assessment Noted Time PHQ-9 Depression Total Score: 5 05/05/20 24 9:05 AM EST documented as of this encounter Care Teams Educational Resource Coordinator Relationship Specialty Start Date End Date Name, MD Olayinka [address] [place] [address] PCP - General Family Medicine 08/06/15 documented as of this encounter
== END 2025-01-10 12:31 | disposition home or self-care (01) ==
LOC: HO.HHCX 12:30
PROVIDERS: PCP Internal Medicine Geriatric Medicine; Referring Provider Student in an Organized Health Care Education/Training Program; Visit Provider Internal Medicine Geriatric Medicine
DX: M25.511 Pain in right shoulder (principal); M54.2 Cervicalgia; G89.29 Other chronic pain
CPT/HCPCS: 72050; 73030

== ENCOUNTER → 2025-01-10 12:42 | Outpatient (BNV) | payer OTHER, SELFPAY | PROVIDERS: PCP Internal Medicine Geriatric Medicine; Referring Provider Student in an Organized Health Care Education/Training Program; Visit Provider Radiology Diagnostic Radiology | DX: M50.321 Other cervical disc degeneration at C4-C5 level (principal); M50.322 Other cervical disc degeneration at C5-C6 level; M50.323 Other cervical disc degeneration at C6-C7 level; M25.511 Pain in right shoulder | CPT/HCPCS: 72050; 73030 ==

== ENCOUNTER 2025-01-19 11:57 | Outpatient (REF) | payer OTHER, SELFPAY ==
--- OUTSIDE RECORDS SUMMARY | 2025-01-19 12:40 | XMS_ITS | Encounter Summary ---
Author Organization [employer] [facility] Address [address] [place] [address] [place] [address] Care Team Providers Care Digital Forensics Examiner Name Role Phone Name, Olayinka ROSARIO Primary Care Provider [phone] Encounter Details Date Type Department Care Team (Latest Contact Info) Description 03/16/2022 Abstract [facility] CONVERSIONS Dental, Provider, DDS Social History [...] Description 02/22/2025 10:00 AM EDT Office Visit [facility] ADULT DENTAL [address] [place] [address] Blanche Wilkerson documented as of this encounter Visit Diagnoses Not on filedocumented in this encounter Care Teams Digital Forensics Examiner Relationship Specialty Start Date End Date Name, MD Olayinka [address] [place] [address] PCP - General Family Medicine 08/06/15 documented as of this encounter
--- OUTSIDE RECORDS SUMMARY | 2025-01-19 12:40 | XMS_ITS | Encounter Summary ---
Author Organization [employer] [facility] Address [address] [place] [address] 7 [place] [address] Care Team Providers Care Building Insulation Installer Name Role Phone Name, Olayinka ROSARIO Primary Care Provider [phone] Encounter Details Date Type Department Care Team (Late Contact Info) Description 10/08/2022 Abstract [facility] MEDICINE [address] [place], [place] [phone] Name, MD Olayinka [address] [place] [address] Social History Tobacco Use Types Packs/Day Years [...] Description 02/22/2025 10:00 AM EDT Office Visit [facility] ADULT DENTAL [address] [place] [address] Blanche Wilkerson documented as of this encounter [...] documented as of this encounter Care Teams Building Insulation Installer Relationship Specialty Start Date End Date Name, MD Olayikna [address] [place] [address] PCP - General Family Medicine 08/06/15 documented as of this encounter
--- OUTSIDE RECORDS SUMMARY | 2025-01-19 12:40 | XMS_ITS | Clinical Summary ---
Author Organization [employer] Address [address] [facility] [address] [place] [address] Care Team Providers Care Mortuary Operations Manager Name Role Phone Name, Olayinka ROSARIO Primary Care Provider [phone] Allergies No known active allergies Medications * [...] to right ear nightly for one week, croatian 15 mL 01/29/20 23 Active Acetaminophen Extra [...] Once per day. 30 tablet 11 01/11/20 026 Active Additional Information Patient not taking.Reported [...] Active Problems Problem Noted Date Diagnosed Date Neck pain 01/10/2025 Assessment & Plan (01/10/2025 11:36 PM EDT): From exam there is tenderness w palpation over trapezius muscle in right side and right side of neck as well over anterior right shoulder with no erythema,swelling nor increase skin temp Sensory and strength of upper extremities are normal today From 08/2024 CBC and basic metabolic panel wnl -emla cream and diclofenac topical pxed today ,state was told to avoid oral NSAIDS by animal husbandman , if pain too intense ok to take sporadically oral NSAIDS -tylenol 1 gr Q 8 PRN -cyclobenzaprine 5 mg HS 7 days -- -prescribed muscle relaxant for few days - prior bedtime-explained to avoid ETOH,and to not drive or use heavy machinery after taking medication -XR neck and right shoulder-will inform pt results -referred to PT today -f w PCP if no improvement -advised pt to consider acupuncture Fibromyalgia 12/27/2024 Hypertension 12/27/2024 Assessment & Plan (01/10/2025 11:38 PM EDT): Informed pt that from PCP 's note today given pt is having mx elevated home BP PCP sent to pharmacy losartan to be started and basic metabolic panel was ordered to be done in 1 week Pt should be contacted as well to have f up apt w staffing and scheduling coordinator to f BP to monitor BP Generalized chronic severe periodontitis 024 Severe generalized [...] call clinic to request image results-may need CHILD SUPPORT CASE OFFICER referral if symptoms persist despite US -alarm [...] Description 01/10/2025 11:30 AM EDT Office Visit [address] [address] Deya Gutiérrez MD Neck pain (Primary Dx); Right anterior shoulder pain; Dietary counseling; Exercise counseling; Hypertension, unspecified type 01/10/2025 Results Follow-Up [address] [address] Deya Gutiérrez MD XR Cervical Spine 5 View 01/10/[address] [address] Olayinka Mederos MD Blood Pressure 01/10/2025 Travel 12/28/[address] [address] Olayinka Mederos MD Durable Medical Equipment 12/27/2024 10:30 AM EDT Office Visit [address] [address] Olayinka Mederos MD Fibromyalgia (Primary Dx); Urinary tract infection with hematuria, site unspecified; Dysuria; Mixed stress and urge urinary incontinence; Hypertension, unspecified type 12/27/2024 Orders Only [address] [address] Olayinka Mederos MD 12/27/2024 Travel 11/19/[address] [address] Olayinka Mederos MD Acquired hypothyroidism; Chronic bilateral [...] seasonal, injecta ble, preservative free 01/25/2024,02/26/2016,01/04/2015 Novel [id number], preservative-free 04/23/2009 PPD Test 09/28/2012,11/25/2010,05/31/2009 Tdap 08/11/2021,02/12/2010 [...] is your housing situation today? I have miladylakshmi claire 05/05/[address] you [...] t he electric, gas, oil or water [employer] threatened to shut off services in your [...] Description 02/22/2025 10:00 AM EDT Office Visit [facility] [address] [place] [address] Blanche Wilkerson Health Maintenance Due Date Last Done Comments CT Colonography 1960 FIT DNA/Cologuard 1960 FIT 1960 FOBT 1960 HIV Screening 1960 Lipid Panel 1960 Sigmoidoscopy 1962 Hepatitis C Screening 1980 Pneumococcal Vaccine: 50+ Years (1 of 1 - PCV) 2012 Mammogram 05/25/2024 05/25/2022, 01/0 11/2021, 03/29/2018 COVID-19 Vaccine ( season) 2025 10/08/2021, 04/01/2021, 08/22/2020, Additional history exists Influenza Vaccine (#1) 2025 , 02/15/2023, 04/24/2022, [...] Procedure Name Priority Date/Time Associated Diagnosis Comments XR CERVICAL SPINE 5 VIEW Routine 01/10/2025 12:10 PM EDT Neck pain Right anterior shoulder pain XR SHOULDER 2+ VIEWS RIGHT Routine 01/10/2025 12:03 PM EDT Neck pain Right anterior shoulder pain POCT URINALYSIS DIPSTICK Routine 12/27/2024 11:00 AM [...] Relevant to Health Maintenance Results * XR Cervical Spine 5 View (01/10/2025 12:10 PM EDT) Anatomical Region Laterality Modality Spine, C-spine Radiographic Wanda ging 01/10/2025 12:1 0 PM EDT Narrative 01/10/2025 1:17 PM EDT [address] [address] XRay Report Signed Patient: Makayla Barnes MR#: [id number] : 1960 Acct:[id number] Age/Sex: 64 / F ADM Date: 01/10/25 Loc: HO.HHCX Attending Dr: Olayinka Mederos MD Ordering Physician: Deya Gutiérrez MD Date of Service: 01/10/25 Procedure(s): XR cervical spine 5V Accession Number(s): [id number] cc: Olayinka Mederos MD; Deya Gutiérrez MD EXAMINATION: XR CERVICAL SPINE CLINICAL INFORMATION: chronic neck pain and right shoudler pain COMPARISON: None available. TECHNIQUE: 3 views of the cervical spine were obtained. FINDINGS: C4-5: Ossified is narrow the right neural foramen. C5-6: Osteophytes narrow the left neural foramen C6-7 demonstrates mild disc space narrowing with anterior osteophytes. Vertebral body height is preserved. There is mild straightening of lower cervical spine. There is no prevertebral edema. XR/XR cervical spine 5V IMPRESSION: Degenerative changes are evident at C4-5, C5-6, and C6-7. Electronically signed by: Merrick Hastings MD 01/10/2025 01:14 PM EDT Dictated By: Merrick Hastings MD Signed By: <Electronically signed by Merrick Hastings MD in OV> 01/10/25 1314 DD/ 1210 TD/TT: 01/10/25 1230 Sprinkler Fitter Apprentice: Procedure Note Donotuseinterpreter, Image - 01/10/2025 [facility] [address] [place] [address] XRay Report Signed Patient: Juana BarnesR#: [id number] : 1960Acct:[id number] Age/Sex: 64 / FADM Date: 01/10/25 Loc: HO.HHCX Attending Dr: Olayinka Mederos MD Ordering Physician: Deya Gutiérrez MD Date of Service: 01/10/25 Procedure(s): XR cervical spine 5V Accession Number(s): [id number] cc: Olayinka Mederos MD; Deya Gutiérrez MD EXAMINATION: XR CERVICAL SPINE CLINICAL INFORMATION: chronic neck pain and right shoudler pain COMPARISON: None available. TECHNIQUE: 3 views of the cervical spine were obtained. FINDINGS: C4-5: Ossified is narrow the right neural foramen. C5-6: Osteophytes narrow the left neural foramen C6-7 demonstrates mild disc space narrowing with anterior osteophytes. Vertebral body height is preserved. There is mild straightening of lower cervical spine. There is no prevertebral edema. XR/XR cervical spine 5V IMPRESSION: Degenerative changes are evident at C4-5, C5-6, and C6-7. Electronically signed by: Merrick Hastings MD 01/10/2025 01:14 PM EDT RP Dictated By: Merrick Hastings MD Signed By: <Electronically signed by Merrick Hastings MD in OV> 01/10/25 1314 DD/ 1210 TD/TT: 01/10/25 1230 Sprinkler Fitter Apprentice: Deya Man MD IMG XR PROCEDURES Final Result * XR Shoulder 2+ Views Right (01/10/2025 12:03 PM EDT) Anatomical Region Laterality Modality Upper Extremities, Shoulder Right Radi ographic Imaging 01/10/2025 12:0 3 PM EDT Narrative 01/10/2025 1:14 PM EDT [address] [address] XRay Report Signed Patient: Makayla Barnes MR#: [id number] : 1960 Acct:[id number] Age/Sex: 64 / F ADM Date: 01/10/25 Loc: HO.HHCX Attending Dr: Olayinka Mederos MD Ordering Physician: Deya Gutiérrez MD Date of Service: 01/10/25 Procedure(s): XR shoulder RT min 2V Accession Number(s): [id number] cc: Olayinka Mederos MD; Deya Gutiérrez MD EXAMINATION: XR SHOULDER, RIGHT CLINICAL INFORMATION: chronic neck pain and right shoudler pain COMPARISON: None available. TECHNIQUE: AP external rotation, Grashey, scapular Y, and axillary views of the right shoulder. FINDINGS: There is no degenerative change, dislocation, or AC joint separation. No fracture is identified. XR/XR shoulder RT min 2V IMPRESSION: Unremarkable right shoulder. Electronically signed by: Merrick Hastings MD 01/10/2025 01:11 PM EDT RP Dictated By: Merrick Hastings MD Signed By: <Electronically signed by Merrick Hastings MD in OV> 01/10/25 1311 DD/ 1203 TD/TT: 01/10/25 1230 Sprinkler Fitter Apprentice: Procedure Note Donotuseinterpreter, Image - 01/10/2025 [place] [address] XRay Report Signed Patient: Nahed Barnes#: [id number] : 1960Acct:[id number] Age/Sex: 64 / FADM Date: 01/10/25 Loc: HO.HHCX Attending Dr: Olayinka Mederos MD Ordering Physician: Deya Gutiérrez MD Date of Service: 01/10/25 Procedure(s): XR shoulder RT min 2V Accession Number(s): [id number] cc: Olayinka Mederos MD; Deya Gutiérrez MD EXAMINATION: XR SHOULDER, RIGHT CLINICAL INFORMATION: chronic neck pain and right shoudler pain COMPARISON: None available. TECHNIQUE: AP external rotation, Grashey, scapular Y, and axillary views of the right shoulder. FINDINGS: There is no degenerative change, dislocation, or AC joint separation. No fracture is identified. XR/XR shoulder RT min 2V IMPRESSION: Unremarkable right shoulder. Electronically signed by: Merrick Hastings MD 01/10/2025 01:11 PM EDT RP Dictated By: Merrick Hastings MD Signed By: <Electronically signed by Merrick Hastings MD in OV> 01/10/25 1311 DD/ 1203 TD/TT: 01/10/25 1230 Sprinkler Fitter Apprentice: Deya Man MD IMG XR PROCEDURES Final Result * (ABNORMAL) POCT Urinalysis (12/27/2024 11:00 AM [...] Media Lot # [id number] Lot# Expiration Date [id number] Urine 12/27/2024 11:0 0 AM EDT Olayinka Mederos MD POINT OF CARE TEST ENTER/EDIT OR DERABLES Final Result * (ABNORMAL) Urinalysis, Complete, with Reflex to Culture (12/27/2024 12:00 AM EDT) Color Urine Yellow [facility] Appearance Urine Clear [facility] PH 6.5 5.0 - 9.0 [facility] Glucose Urine UA Negative Negative mg/dL [facility] Urine Blood Trace(A) Negative [facility] Specific Melvin - Urine 1.015 1.005 - 1.025 [facility] Urine Protein Negative Neg-Trace mg/dL [facility] Urine Ketones Negative Negative mg/dL [facility] Nitrite Urine Negative Negative [facility] Leukocyte Esterase Urine Large (3+)(A) Negative [facility] RBC Urine 0-2 0 - 2 /HPF [facility] Urine WBC 6-10(A) 0 - 5 /HPF [facility] Urine Squamous Epithelial Cell 3-5 0 - 2 /HPF [facility] Urine Bacteria None Seen None Seen [facility] Hyaline Casts, Urine 0-2 0 - 2 /LPF [facility] Urine 12/27/2024 12/27/2024 [facility] - 12/27/2024 6:16 PM EDT Urine, Clean Catch us Olayinka Mederos MD LAB URINE ORDERABLES Final Resul t Performing Organization Address City/[facility] Co de Phone Number [facility] [address] [place] [phone] * Culture, Urine, Routine (12/27/2024 12:00 AM EDT) Urine Urine specimen obtained by clean catch procedure / Unknown 12/27/2024 12/27/2024 Comment:UACC [facility] - 12/29/2024 8:54 AM EDT Urine Culture Report Result Urine Culture > 100,000 cfu/ml Urine Culture Mixed bacterial gema characteristic of Urine Culture urogenital contamination. Specimen Source: Urine clean catch us Olayinka VELIZ MICROBIOLOGY - GENERAL ORDER JIMMIE Final Result Performing Organization Address [facility] Co de Phone Number [facility] [address] [place] [phone] * Pap Smear (03/30/2023 3:54 PM EST) 03/30/2023 3:54 PM EST 03/31/2023 7:30 AM EST [facility] - 04/16/2023 1:39 PM EST ----- ------- Name: Makayla Barnes Age/Sex: 62/F : 1960 [id number]#: [id number] Attend Dr: Devon Kaur MD Re03/30/23 Status: [facility] REF Location: [facility] Disch: ----- ------- SPEC : [id number] RECD: 03/31/23 STATUS: JERI SKY NUM: [id number] SCOT: 03/30/23-1554 [facility] DR: Devon Kaur MD ENTERED: 03/31/23 SP TYPE: Pap Smr OTHR DR: Olayinka Mederos MD ORDERED: Pap Smear Interpretation Satisfactory for evaluation. Moderate inflammation. Negative for intraepithelial lesion or malignancy. HPV mRNA E6/E7: NOT DETECTED This assay detects E6/E7 viral messenger RNA (mRNA) from 14 high-risk HPV types (16, 18, 31, 33, 35, 39, 45, 51, 52, 56, 58, 59, 66, 68) HPV testing performed by [employer], [place], [place]. See reference laboratory portion of the EMR for entire report. Clinical Information LMP: Postmenopausal Previous PAP test: Unknown date/findings Other history: Postmenopausal bleeding Material Received ThinPrep-Cervical Copies To: Olayinka Mederos MD [address] [place] [address] [phone] Devon Kaur MD [address] [place], [place] [address]id [address] [address] ----- ------- Signed (signature on file) EULOGIO Reid ([facility]) 04/16/23 1339 ----- ------- END OF REPORT us Generic External Data Provider LAB CYTOLOGY JORDYN WILKES Final Result [facility] [address] [place] [address] [phone] * BI Mammogram Screening Tomosynthesis Bilateral (05/25/2022 3:57 PM EST) Anatomical Region Laterality Modality Breast Bilateral Mammography 05/25/2022 3:57 PM EST Narrative 05/27/2022 6:51 PM EST [facility] [address] [place] [address] Mammography Report Signed Patient: Makayla Barnes MR#: [id number] : 1960 Acct:[id number] Age/Sex: 61 / F ADM Date: 05/25/22 Loc: WILLIE Attending Dr: Olayinka Mederos MD Ordering Physician: Olayinka Mederos MD Results: 1Negative Date of Service: 05/25/22 Follow Up: 1 Year From Orig inal Mammogram Procedure(s): MM tomosynthesis screening BI Accession Number(s): [id number] cc: Olayinka Mederos MD EXAMINATION: MM SCREENING [...] by Román Santos MD in OV> 05/27/22 1848 DD/ 1557 TD/TT: Sprinkler Fitter Apprentice: DEBBIE Procedure Note Donotuseinterpreter, Image - 05/27/2022 [facility] [address] [place] [address] Mammography Report Signed Patient: Juana BarnesR#: [id number] : 1960Acct:[id number] Age/Sex: 61 / FADM Date: 05/25/22 Loc: HO.MAMMO Attending Dr: Olayinka Mederos MD Ordering Physician: Olayinka Mederosesults: 1Negative Date of Service: 05/25/22Follow Up: 1 Year From Orig inal Mammogram Procedure(s): MM tomosynthesis screening BI Accession Number(s): [id number] cc: Olayinka Mederos MD EXAMINATION: MM SCREENING [...] by Román Santos MD in OV> 05/27/22 1848 DD/ 1557 TD/TT: Sprinkler Fitter Apprentice: [facility] External Provider IMG BI PROCEDURES Edited Result - Final * Hm Colonoscopy (06/20/2019 9:08 AM EST) Colonoscopy Normal Normal Narrative Aixa Licea - 06/20/2019 9:08 AM EST Recommended 10 year follow up Historical Provider HEALTH MAINTENANCE Final Result * HPV mRNA E6/E7 (03/15/2019 2:48 PM EDT) HPV mRNA E6/E7 Not Detected NOT DETECTED [facility] Comment: This test was performed using the APTIMA(R) HPV Assay ([employer] This assay detects E6/E7 viral messenger RNA (mRNA) from 14 high-risk HPV types (16,18,31,33,35,39,45,51, 52,56,58,59,66,68). For additional information please refer to: http://education.BackOps.THE FASHION/faq/WRP492e6 (This link is being provided for informational/ educational purposes only.) The analytical performance characteristics of this assay have been determined by [employer] [place], [place]. The modifications have not been cleared or approved by the FDA. This assay has been validated pursuant to the CLIA regulations and is used for clinical purposes. Test Performed by [employer], [employer] [place], [address] [place] [address] Deepak Fleming M.D., Ph.D., Director of Laboratories , CLIA [id number] Please note: Effective 01/27/2016, HPV testing will be performed using [employer]'s APTIMA test which targets mRNA. Detecting mRNA instead of DNA, as in older methods, offers significant improvements in specificity. 03/15/2019 2:48 PM EDT us Eryn Alfaro CNM HISTORICAL/NON ORDERABLE LABS Final Result [facility] [address] from Last 3 Months or Most Recently Relevant to Health Maintenance Insurance [facility] ONE CARE < 65 [facility] MEDICAID STAND ADULT Care Teams Mortuary Operations Manager Relationship Specialty Start Date End Date Name, MD Olayinka [address] [place] [phone] PCP - General Family Medicine 08/06/15"
--- OUTSIDE RECORDS SUMMARY | 2025-01-19 12:40 | XMS_ITS | Clinical Summary ---
Author Organization [facility] Address [address] [place] [address] Care Team Providers Care Travertine Installer Name Role Phone Unavailable Primary Care Provider [...] 04/19/2022 Social Influencers of Health Screening 04/19/2022 Depression Screening 05/17/2024 COVID-19 Vaccine ( - season) 2025 Influenza Vaccine (#1) 2025 5, 03/01/2013, 05/05/2012, [...]
--- OUTSIDE RECORDS SUMMARY | 2025-01-19 12:40 | XMS_ITS | Encounter Summary ---
Author Organization [employer] [facility] Address [address] [place] [phone] Care Team Providers Care Garment Worker Name Role Phone Name, Olayinka ROSARIO Primary Care Provider [phone] Encounter Details Date Type Department Care Team (Late st Contact Info) Description 05/07/2022 Abstract [facility] [address] [place] [address] Faisal Feliz DDS [address] [place] [address] Social History Tobacco Use Types Packs/Day Years [...] Description 02/22/2025 10:00 AM EDT Office Visit [facility] [address] [place] [address] Blanche Wilkerson documented as of this encounter Visit Diagnoses Not on filedocumented in this encounter Care Teams Garment Worker Relationship Specialty Start Date End Date Name, MD Olayinka [address] [place] [address] PCP - General Family Medicine 08/06/15 documented as of this encounter
--- OUTSIDE RECORDS SUMMARY | 2025-01-19 12:40 | XMS_ITS | Encounter Summary ---
Author Organization [employer] [facility] Address [address] [place] [address] [place] [address] Care Team Providers Care Bill Poster Installer Name Role Phone Name, Olayinka ROSARIO Primary Care Provider [phone] Encounter Details Date Type Department Care Team (Latest Contact Info) Description 08/16/2020 Abstract [facility] CONVERSIONS Dental, Provider, DDS Social History Tobacco [...] Office Visit [facility] [address] [place] [address] Blanche Wilkerson documented as of this encounter Visit Diagnoses Not on filedocumented in this encounter Care Teams Bill Poster Installer Relationship Specialty Start Date End Date Name, MD Olayinka [address] [place] [address] PCP - General Family Medicine 08/06/15 documented as of this encounter
--- OUTSIDE RECORDS SUMMARY | 2025-01-19 12:40 | XMS_ITS | Encounter Summary ---
Author Organization [employer] [facility] Address [address] [place] [address] [place] [address] Care Team Providers Care Quarry Extraction Worker Name Role Phone Name, Olayinka ROSARIO Primary Care Provider Encounter Details Date Type Department Care Team (Latest Contact Info) Description 01/25/2019 Abstract [facility] CONVERSIONS Dental, Provider, DDS Social History [...] Description 02/22/2025 10:00 AM EDT Office Visit [facility] [address] [place] [address] Blanche Wilkerson documented as of this encounter Visit Diagnoses Not on filedocumented in this encounter Care Teams Quarry Extraction Worker Relationship Specialty Start Date End Date Name, MD Olayinka [address] [place] [address] PCP - General Family Medicine 08/06/15 documented as of this encounter
[2025-01-19 16:22] LABS: Anion Gap 13 (12-20); Blood Urea Nitrogen 15 mg/dL (9-16); Calcium 8.8 mg/dL (8.4-10.2); Carbon Dioxide 26 mmol/L (22-29); Chloride 106 mmol/L (96-108); Estimated Glomerular Filt Rate > 60; Potassium 3.9 mmol/L (3.3-5.1); Sodium 141 mmol/L (135-145)
== END 2025-01-19 11:58 | disposition home or self-care (01) ==
LOC: HO.HHCL 11:57
PROVIDERS: PCP Internal Medicine Geriatric Medicine; Visit Provider Internal Medicine Geriatric Medicine
DX: I10 Essential (primary) hypertension (principal)
CPT/HCPCS: 36415; 80048

== ENCOUNTER 2025-04-25 12:08 | Outpatient (REF) | payer OTHER, SELFPAY ==
[2025-04-25 16:55] LABS: Free T4 (Free Thyroxine) 0.72 ng/dL (0.71-1.85)
== END 2025-04-25 12:09 ==
LOC: HO.HHCL 12:08
PROVIDERS: PCP Internal Medicine Geriatric Medicine; Visit Provider Internal Medicine Geriatric Medicine
DX: E03.9 Hypothyroidism, unspecified (principal)
CPT/HCPCS: 36415; 84439; 84443